=== PATIENT | female | born 1930 | race Asian ===

== ENCOUNTER 2016-09-15 16:37 | Inpatient (IN) | payer MEDICARE, MEDICAID ==
[~2016-09-15] VITALS: Ht 147.3 cm; Wt 37.7 kg
[~2016-09-15 16:37] MED LIST: ACET-2247 PO; ADV250 IH; ALEN35TA32 PO; ASPI-1093 PO; ATOR10TA84 PO; AUD NEB; CALC-776 PO; CARV12 PO; DONE10TA PO; DRON2.5C PO; DULO30CA2 PO; LACT-90 PO; LEVO75 PO; MEMA10TA11 PO; PREG50 PO; SPIR25 PO; VALS160T2 PO
[2016-09-15 18:17] LABS: BASOPHILS % (AUTO) 0.2 % (0.0-2.0); EOSINOPHILS % (AUTO) 0 % (1.0-6.0); HEMATOCRIT 28.3 % (36-46); HEMOGLOBIN 9.4 g/dL (12.0-16.0); LYMPHOCYTES # (AUTO) 2.2 K/uL (1.0-4.8); LYMPHOCYTES % (AUTO) 18.6 % (22.0-44.0); MEAN CORPUSCULAR HEMOGLOBIN 32.8 pg (26.0-34.0); MEAN CORPUSCULAR HGB CONC 33.3 G/dL (31.0-37.0); MEAN CORPUSCULAR VOLUME 98 fL (80-100); MONOCYTES # (AUTO) 0.8 K/uL (0.1-1.0); MONOCYTES % (AUTO) 6.9 % (2.0-9.0); NEUTROPHILS # (AUTO) 8.9 K/uL (1.8-7.7); NEUTROPHILS % (AUTO) 74.3 % (40.0-70.0); PLATELET COUNT (AUTO) 124 K/uL (150-450); RED BLOOD CELL COUNT(AUTO) 2.87 MIL/uL (4.00-5.20); RED CELL DISTRIBUTION WIDTH 15.8 % (11.5-14.5); WHITE BLOOD COUNT (AUTO) 11.9 K/uL (4.5-11.0)
[2016-09-15 18:33] LABS: CALCIUM, TOTAL 7.8 mg/dL (8.8-10.5); CREATININE 2.09 mg/dL (0.60-1.30)
[2016-09-15 18:37] LABS: ALBUMIN 2.2 g/dL (3.4-5.0); BILIRUBIN,TOTAL 0.4 mg/dL (0.1-1.0); TOTAL PROTEIN, SERUM 6.9 g/dL (6.4-8.2)
[2016-09-15 18:44] LABS: LACTIC ACID 0.5 mmol/L (0.4-2.0)
[2016-09-15] MEDS ORDERED: ALBUMIN HUMAN 25%-50GM/200ML 200 ML IV ONE (19:00)
[2016-09-15] MEDS ORDERED: ACETAMINOPHEN 325 MG TABLET PO PRN (19:30)
[2016-09-15] MEDS ORDERED: 0.9% SODIUM CHLORIDE 10 ML SYRINGE IVP PRN ×3 (19:30→22:00)
[2016-09-15] MEDS ORDERED: ONDANSETRON HCL 4 MG/2 ML VIAL IVP PRN ×2 (19:30→22:00)
[2016-09-15] MEDS ORDERED: LEVOFLOXACIN 500 MG/D5% WATER 100 ML IV ONE (21:00)
[2016-09-15] MEDS ORDERED: MetroNIDAZOLE 500 MG/NACL 100 ML IV ONE ×2 (21:00→22:00)
[2016-09-15] MEDS ORDERED: ALBUTEROL SULFATE 2.5 MG/0.5 ML NEB SOLUTION NEB PRN (22:00)
[2016-09-15] MEDS ORDERED: *CLINICAL-LEVOFLOXACIN IVPB DOSING CLINICAL ONE ×2 (22:00)
[2016-09-15 22:20] LABS: PROCALCITONIN (PCT) 0.35 ng/mL (<0.50)
[2016-09-15 22:24] LABS: APPEARANCE,URINE CLOUDY (CLEAR); GLUCOSE, URINE (UA) NEGATIVE (NEGATIVE); KETONES,URINE NEGATIVE (NEGATIVE); LEUKOCYTE ESTERASE ,URINE TRACE (NEGATIVE); OCCULT BLOOD,URINE TRACE (NEGATIVE); PH,URINE 5.5 (5.0-8.0); PROTEIN,URINE POS 1+ (NEGATIVE)
[2016-09-15 22:32] LABS: ADD UA MICROSCOPIC YES
[2016-09-15 22:34] LABS: RBC,URINE None Seen /HPF (0-2); SQUAMOUS EPITHELIAL CELL,UR Rare /LPF (None Seen); WBC,URINE 0-2 /HPF (0-5)
[2016-09-15] MEDS ORDERED: SODIUM CHLORIDE 0.9% 1,000 ML IV ONE (23:53)
[2016-09-16] MEDS ORDERED: [UNRECOGNIZED DRUG - REMARK] PO SCH (06:30)
[2016-09-16] MEDS: PANTOPRAZOLE SODIUM 40 MG DR TABLET PO SCH (08:04)
[2016-09-16] MEDS ORDERED: VANCOMYCIN HCL 750 MG in DEXTROSE 5%-WATER 150 ML IV ONE (09:00)
[2016-09-16] MEDS: IPRATROPIUM BROMIDE 0.5 MG/2.5 ML NEB SOLUTION NEB PRN ×2 (09:05→13:21)
[2016-09-16] MEDS: ALBUTEROL SULFATE 2.5 MG/0.5 ML NEB SOLUTION NEB SCH (09:05)
[2016-09-16] MEDS: CALCIUM OYSTER SHELL 250 MG-VIT D3 125 UNITS TABLET PO SCH (09:24)
[2016-09-16] MEDS: DRONABINOL 2.5 MG CAPSULE PO SCH ×2 (09:24→21:55)
[2016-09-16] MEDS: LEVOTHYROXINE SODIUM 75 MCG TABLET PO SCH (09:24)
[2016-09-16] MEDS: ATORVASTATIN CALCIUM 10 MG TABLET PO SCH (09:24)
[2016-09-16 09:26] LABS: BASOPHILS % (AUTO) 0.2 % (0.0-2.0); EOSINOPHILS % (AUTO) 0.3 % (1.0-6.0); HEMOGLOBIN 10.1 g/dL (12.0-16.0); LYMPHOCYTES % (AUTO) 8.5 % (22.0-44.0); MEAN CORPUSCULAR HEMOGLOBIN 32.5 pg (26.0-34.0); MEAN CORPUSCULAR HGB CONC 32.6 G/dL (31.0-37.0); MEAN CORPUSCULAR VOLUME 100 fL (80-100); MONOCYTES # (AUTO) 0.4 K/uL (0.1-1.0); MONOCYTES % (AUTO) 3.7 % (2.0-9.0); NEUTROPHILS # (AUTO) 10.3 K/uL (1.8-7.7); NEUTROPHILS % (AUTO) 87.3 % (40.0-70.0); PLATELET COUNT (AUTO) 113 K/uL (150-450); RED BLOOD CELL COUNT(AUTO) 3.11 MIL/uL (4.00-5.20); RED CELL DISTRIBUTION WIDTH 16.1 % (11.5-14.5); WHITE BLOOD COUNT (AUTO) 11.8 K/uL (4.5-11.0)
[2016-09-16 09:30] LABS: INR 1.1 (0.9-1.1); PROTHROMBIN TIME 11.6 SEC (9.4-11.6)
[2016-09-16 09:33] LABS: HEMOGLOBIN A1C 5.4 % (4.5-6.2)
[2016-09-16] MEDS: FLUTICASONE/VILANTEROL 200-25 MCG/INH INHALER [14] IH SCH (09:39)
[2016-09-16 09:46] LABS: CHOL/HDL RATIO 5.9 (3.9-5.7); THYROID STIMULATING HORMONE 4.08 uIU/mL (0.36-3.74)
[2016-09-16] MEDS ORDERED: VANCOMYCIN HCL 500 MG in DEXTROSE 5%-WATER 100 ML IV PRN (11:00)
[2016-09-16] MEDS ORDERED: DEXTROSE 5%-0.45% SODIUM CHL 1,000 ML IV SCH (11:15)
[2016-09-16 11:29] LABS: BILIRUBIN,TOTAL 0.4 mg/dL (0.1-1.0); CALCIUM, TOTAL 7.8 mg/dL (8.8-10.5); CREATININE 1.36 mg/dL (0.60-1.30); POTASSIUM 4.6 mmol/L (3.5-5.1); TOTAL PROTEIN, SERUM 6.9 g/dL (6.4-8.2)
[2016-09-16] MEDS ORDERED: DEXTROSE 5%-0.9% SODIUM CHL 1,000 ML IV SCH (12:00)
[2016-09-16] MEDS: MetroNIDAZOLE 250 MG/NACL 50 ML IV SCH ×2 (12:28→20:40)
[2016-09-16] MEDS: VANCOMYCIN HCL 250 MG/5 ML SOLUTION ORAL.SYG PO SCH ×3 (14:22→21:55)
[2016-09-16 15:53] LABS: TROPONIN I 0.03 ng/mL (0.00-0.05)
[2016-09-16 16:43] VITALS: BP 95/49
[2016-09-16] MEDS: SODIUM BICARBONATE 50 MEQ in SODIUM CHLORIDE 0.45% 1,000 ML IV SCH (18:05)
[2016-09-16 19:31] VITALS: BP 100/69
[2016-09-16] MEDS ORDERED: DEXTROSE 5%-0.9% SODIUM CHL 1,000 ML IV ONE (20:00)
[2016-09-16] MEDS ORDERED: DEXTROSE 5%-0.45% SODIUM CHL 1,000 ML IV ONE (21:00)
[2016-09-17 00:16] VITALS: BP 121/59
[2016-09-17] MEDS: ALBUTEROL SULFATE 2.5 MG/0.5 ML NEB SOLUTION NEB SCH ×3 (00:56→20:08)
[2016-09-17] MEDS: HYDROCODONE/ACETAMINOPHEN 5-325 MG TABLET PO PRN (02:06)
[2016-09-17 04:32] VITALS: BP 124/62
[2016-09-17] MEDS: MetroNIDAZOLE 250 MG/NACL 50 ML IV SCH ×3 (04:41→20:41)
[2016-09-17 06:22] LABS: ORIG DRAW (USER) MSIMS
[2016-09-17] MEDS: LEVOTHYROXINE SODIUM 75 MCG TABLET PO SCH (06:32)
[2016-09-17] MEDS: PANTOPRAZOLE SODIUM 40 MG DR TABLET PO SCH (06:32)
[2016-09-17 06:35] LABS: ALBUMIN 2.4 g/dL (3.4-5.0); BILIRUBIN,TOTAL 0.3 mg/dL (0.1-1.0); CALCIUM, TOTAL 7.7 mg/dL (8.8-10.5); CREATININE 1.05 mg/dL (0.60-1.30); MAGNESIUM 1.6 mg/dL (1.80-2.40); PHOSPHORUS 2.6 mg/dL (2.5-4.9); POTASSIUM 4.2 mmol/L (3.5-5.1); THYROID STIMULATING HORMONE 4.16 uIU/mL (0.36-3.74); TOTAL PROTEIN, SERUM 6.1 g/dL (6.4-8.2)
[2016-09-17 07:17] LABS: BASOPHILS % (AUTO) 0.2 % (0.0-2.0); EOSINOPHILS % (AUTO) 0.6 % (1.0-6.0); HEMATOCRIT 28.9 % (36-46); HEMOGLOBIN 9.5 g/dL (12.0-16.0); LYMPHOCYTES # (AUTO) 1.2 K/uL (1.0-4.8); MEAN CORPUSCULAR HEMOGLOBIN 32.8 pg (26.0-34.0); MEAN CORPUSCULAR VOLUME 99 fL (80-100); MONOCYTES # (AUTO) 0.4 K/uL (0.1-1.0); MONOCYTES % (AUTO) 6.6 % (2.0-9.0); NEUTROPHILS # (AUTO) 5.2 K/uL (1.8-7.7); NEUTROPHILS % (AUTO) 75.6 % (40.0-70.0); PLATELET COUNT (AUTO) 92 K/uL (150-450); RED BLOOD CELL COUNT(AUTO) 2.91 MIL/uL (4.00-5.20); WHITE BLOOD COUNT (AUTO) 6.8 K/uL (4.5-11.0)
[2016-09-17 07:55] VITALS: BP 117/50
[2016-09-17] MEDS: IPRATROPIUM BROMIDE 0.5 MG/2.5 ML NEB SOLUTION NEB PRN (08:28)
[2016-09-17] MEDS ORDERED: MAGNESIUM SULFATE 2 GM in DEXTROSE 5%-WATER 50 ML IV ONE (08:30)
[2016-09-17] MEDS: FLUTICASONE/VILANTEROL 200-25 MCG/INH INHALER [14] IH SCH (09:20)
[2016-09-17] MEDS: CALCIUM OYSTER SHELL 250 MG-VIT D3 125 UNITS TABLET PO SCH (09:21)
[2016-09-17] MEDS: VANCOMYCIN HCL 250 MG/5 ML SOLUTION ORAL.SYG PO SCH ×3 (09:21→21:36)
[2016-09-17] MEDS: DRONABINOL 2.5 MG CAPSULE PO SCH ×2 (09:21→20:40)
[2016-09-17] MEDS: ATORVASTATIN CALCIUM 10 MG TABLET PO SCH (09:21)
[2016-09-17 12:26] VITALS: BP 127/57
[2016-09-17] MEDS ORDERED: VANCOMYCIN HCL 500 MG in DEXTROSE 5%-WATER 100 ML IV ONE (13:00)
[2016-09-17] MEDS ORDERED: 0.9% SODIUM CHLORIDE 5 ML NEB SOLUTION NEB ONE ×2 (14:19→19:59)
[2016-09-17 15:13] VITALS: BP 128/70
[2016-09-17] MEDS: LEVOFLOXACIN 250 MG/D5% WATER 50 ML IV SCH (19:22)
[2016-09-17 20:00] VITALS: BP 145/75
[2016-09-17] MEDS: ACETAMINOPHEN 325 MG TABLET PO PRN (20:41)
[2016-09-18 00:22] VITALS: BP 96/51
[2016-09-18] MEDS: MetroNIDAZOLE 250 MG/NACL 50 ML IV SCH ×3 (04:00→20:07)
[2016-09-18 05:19] VITALS: BP 99/57
[2016-09-18] MEDS: SODIUM BICARBONATE 50 MEQ in SODIUM CHLORIDE 0.45% 1,000 ML IV SCH (05:24)
[2016-09-18] MEDS: PANTOPRAZOLE SODIUM 40 MG DR TABLET PO SCH (05:33)
[2016-09-18] MEDS: LEVOTHYROXINE SODIUM 88 MCG TABLET PO SCH (05:33)
[2016-09-18 07:33] LABS: ALANINE AMINOTRANSFERASE 18 U/L (12-78); ALBUMIN 2.3 g/dL (3.4-5.0); ANION GAP 9 mmol/L (8-16); ASPARTATE AMINOTRANSFERASE 34 U/L (15-37); BILIRUBIN,TOTAL 0.5 mg/dL (0.1-1.0); CALCIUM, TOTAL 7.8 mg/dL (8.8-10.5); CARBON DIOXIDE 21 mmol/L (22-29); CHLORIDE 107 mmol/L (98-107); CREATININE 0.81 mg/dL (0.60-1.30); GLOMERULAR FILTR. RATE CALC > 60 mL/min (>60); PHOSPHORUS 2.4 mg/dL (2.5-4.9); POTASSIUM 3.9 mmol/L (3.5-5.1); SODIUM SERUM 137 mmol/L (136-145); TOTAL PROTEIN, SERUM 6.3 g/dL (6.4-8.2); UREA NITROGEN, BLOOD 16 mg/dL (7-18)
[2016-09-18 07:35] VITALS: BP 108/51
[2016-09-18 07:50] LABS: IRON, SERUM 23 mcg/dL (50-175); TOTAL IRON BINDING CAPACITY 142 mcg/dL (250-450)
[2016-09-18] MEDS ORDERED: VANCOMYCIN HCL 500 MG in DEXTROSE 5%-WATER 100 ML IV SCH (08:00)
[2016-09-18] MEDS: DRONABINOL 2.5 MG CAPSULE PO SCH ×2 (09:06→20:07)
[2016-09-18] MEDS: CALCIUM OYSTER SHELL 250 MG-VIT D3 125 UNITS TABLET PO SCH (09:06)
[2016-09-18] MEDS: ATORVASTATIN CALCIUM 10 MG TABLET PO SCH (09:06)
[2016-09-18] MEDS: FLUTICASONE/VILANTEROL 200-25 MCG/INH INHALER [14] IH SCH (09:06)
[2016-09-18] MEDS: POTASSIUM PHOS/SODIUM PHOS MIXTURE 1 POWDER PACKET PO SCH ×2 (09:06→20:07)
[2016-09-18] MEDS ORDERED: 0.9% SODIUM CHLORIDE 5 ML NEB SOLUTION NEB ONE (09:12)
[2016-09-18] MEDS: ALBUTEROL SULFATE 2.5 MG/0.5 ML NEB SOLUTION NEB SCH (09:16)
[2016-09-18] MEDS: DEXTROSE 5%-0.45% SODIUM CHL 1,000 ML IV SCH (10:12)
[2016-09-18 11:03] VITALS: BP 88/42
[2016-09-18] MEDS: SOD FERRIC GLUC COMPLX/SUCROSE 125 MG in SODIUM CHLORIDE 0.9% 100 ML IV SCH (11:25)
[2016-09-18] MEDS: VANCOMYCIN HCL 250 MG/5 ML SOLUTION ORAL.SYG PO SCH ×3 (11:33→20:08)
[2016-09-18] MEDS: EPOETIN ALFA 10,000 UNITS/ML VIAL SQ SCH (11:38)
[2016-09-18 15:37] VITALS: BP 123/72
[2016-09-18] MEDS: LEVOFLOXACIN 250 MG/D5% WATER 50 ML IV SCH (16:59)
[2016-09-18 20:22] VITALS: BP 108/55
[2016-09-18] MEDS: VANCOMYCIN HCL 500 MG in DEXTROSE 5%-WATER 100 ML IV SCH (21:31)
[2016-09-19 00:18] VITALS: BP 135/69
[2016-09-19] MEDS: MetroNIDAZOLE 250 MG/NACL 50 ML IV SCH ×2 (03:10→17:16)
[2016-09-19 05:24] VITALS: BP 127/60
[2016-09-19] MEDS: LEVOTHYROXINE SODIUM 88 MCG TABLET PO SCH (05:40)
[2016-09-19] MEDS: PANTOPRAZOLE SODIUM 40 MG DR TABLET PO SCH (05:40)
[2016-09-19 07:12] LABS: ALANINE AMINOTRANSFERASE 15 U/L (12-78); ALBUMIN 2.2 g/dL (3.4-5.0); ANION GAP 10 mmol/L (8-16); ASPARTATE AMINOTRANSFERASE 27 U/L (15-37); BILIRUBIN,TOTAL 0.5 mg/dL (0.1-1.0); CALCIUM, TOTAL 7.4 mg/dL (8.8-10.5); CARBON DIOXIDE 19 mmol/L (22-29); CHLORIDE 104 mmol/L (98-107); CREATININE 0.64 mg/dL (0.60-1.30); GLOMERULAR FILTR. RATE CALC > 60 mL/min (>60); PHOSPHORUS 2.4 mg/dL (2.5-4.9); POTASSIUM 3.3 mmol/L (3.5-5.1); SODIUM SERUM 133 mmol/L (136-145); TOTAL PROTEIN, SERUM 6.2 g/dL (6.4-8.2); UREA NITROGEN, BLOOD 7 mg/dL (7-18)
[2016-09-19 07:26] VITALS: BP 109/58
[2016-09-19] MEDS ORDERED: 0.9% SODIUM CHLORIDE 5 ML NEB SOLUTION NEB ONE (07:43)
[2016-09-19] MEDS ORDERED: POTASSIUM PHOS,M-BASIC-D-BASIC 20 MEQ in DEXTROSE 5%-WATER 100 ML IV ONE (08:00)
[2016-09-19] MEDS ORDERED: MAGNESIUM SULFATE 3 GM in DEXTROSE 5%-WATER 100 ML IV ONE (08:00)
[2016-09-19] MEDS: POTASSIUM PHOS/SODIUM PHOS MIXTURE 1 POWDER PACKET PO SCH ×2 (08:29→20:00)
[2016-09-19] MEDS: FLUTICASONE/VILANTEROL 200-25 MCG/INH INHALER [14] IH SCH (08:29)
[2016-09-19] MEDS: VANCOMYCIN HCL 500 MG in DEXTROSE 5%-WATER 100 ML IV SCH ×2 (08:29→19:57)
[2016-09-19] MEDS: DRONABINOL 2.5 MG CAPSULE PO SCH ×2 (08:30→20:00)
[2016-09-19] MEDS: DEXTROSE 5%-0.45% SODIUM CHL 1,000 ML IV SCH (08:30)
[2016-09-19] MEDS: CALCIUM OYSTER SHELL 250 MG-VIT D3 125 UNITS TABLET PO SCH (08:30)
[2016-09-19] MEDS: ATORVASTATIN CALCIUM 10 MG TABLET PO SCH (08:30)
[2016-09-19] MEDS: SOD FERRIC GLUC COMPLX/SUCROSE 125 MG in SODIUM CHLORIDE 0.9% 100 ML IV SCH (09:00)
[2016-09-19] MEDS ORDERED: POTASSIUM PHOS M BASIC D BASIC IV SCH ×2 (09:00→09:08)
[2016-09-19] MEDS: ALBUTEROL SULFATE 2.5 MG/0.5 ML NEB SOLUTION NEB SCH ×2 (09:00→19:37)
[2016-09-19] MEDS ORDERED: DEXTROSE IV SCH ×2 (09:00→09:08)
[2016-09-19] MEDS ORDERED: SODIUM CHL IV SCH ×2 (09:00→09:08)
[2016-09-19] MEDS: DEXTROSE IV SCH (09:15)
[2016-09-19] MEDS: SODIUM CHL IV SCH (09:15)
[2016-09-19] MEDS: POTASSIUM PHOS M BASIC D BASIC IV SCH (09:15)
[2016-09-19] MEDS: VANCOMYCIN HCL 250 MG/5 ML SOLUTION ORAL.SYG PO SCH ×3 (10:40→20:02)
[2016-09-19 15:57] VITALS: BP 127/66
[2016-09-19] MEDS: LEVOFLOXACIN 250 MG/D5% WATER 50 ML IV SCH (18:21)
[2016-09-19 19:57] VITALS: BP 137/63
[2016-09-20] VITALS (7 sets, daily range): BP systolic 98–152; BP diastolic 55–78
[2016-09-20] MEDS: MetroNIDAZOLE 250 MG/NACL 50 ML IV SCH ×3 (00:59→16:48)
[2016-09-20] MEDS: PANTOPRAZOLE SODIUM 40 MG DR TABLET PO SCH (06:12)
[2016-09-20] MEDS: LEVOTHYROXINE SODIUM 88 MCG TABLET PO SCH (06:13)
[2016-09-20] MEDS: ALBUTEROL SULFATE 2.5 MG/0.5 ML NEB SOLUTION NEB SCH ×2 (09:00→20:51)
[2016-09-20 09:06] LABS: ANION GAP 9 mmol/L (8-16); CARBON DIOXIDE 20 mmol/L (22-29); CHLORIDE 109 mmol/L (98-107); CREATININE 0.59 mg/dL (0.60-1.30); POTASSIUM 3.7 mmol/L (3.5-5.1); SODIUM SERUM 138 mmol/L (136-145)
[2016-09-20 09:07] LABS: ALANINE AMINOTRANSFERASE 14 U/L (12-78); ALBUMIN 2.2 g/dL (3.4-5.0); ASPARTATE AMINOTRANSFERASE 26 U/L (15-37); BILIRUBIN,TOTAL 0.5 mg/dL (0.1-1.0); CALCIUM, TOTAL 7.5 mg/dL (8.8-10.5); GLOMERULAR FILTR. RATE CALC > 60 mL/min (>60); PHOSPHORUS 3.2 mg/dL (2.5-4.9); TOTAL PROTEIN, SERUM 6.7 g/dL (6.4-8.2)
[2016-09-20 09:17] LABS: UREA NITROGEN, BLOOD 5 mg/dL (7-18)
[2016-09-20] MEDS: EPOETIN ALFA 10,000 UNITS/ML VIAL SQ SCH (09:52)
[2016-09-20] MEDS: VANCOMYCIN HCL 250 MG/5 ML SOLUTION ORAL.SYG PO SCH ×3 (09:52→21:27)
[2016-09-20] MEDS: ATORVASTATIN CALCIUM 10 MG TABLET PO SCH (09:52)
[2016-09-20] MEDS: DRONABINOL 2.5 MG CAPSULE PO SCH ×2 (09:52→21:27)
[2016-09-20] MEDS: FLUTICASONE/VILANTEROL 200-25 MCG/INH INHALER [14] IH SCH (09:52)
[2016-09-20] MEDS: VANCOMYCIN HCL 500 MG in DEXTROSE 5%-WATER 100 ML IV SCH ×2 (09:52→21:26)
[2016-09-20] MEDS: SOD FERRIC GLUC COMPLX/SUCROSE 125 MG in SODIUM CHLORIDE 0.9% 100 ML IV SCH (09:53)
[2016-09-20] MEDS: CALCIUM OYSTER SHELL 250 MG-VIT D3 125 UNITS TABLET PO SCH (09:55)
[2016-09-20] MEDS ORDERED: MAGNESIUM SULFATE 1 GM in DEXTROSE 5%-WATER 50 ML IV ONE (10:15)
[2016-09-20] MEDS: HYDROCODONE/ACETAMINOPHEN 5-325 MG TABLET PO PRN (15:25)
[2016-09-20] MEDS: LEVOFLOXACIN 250 MG/D5% WATER 50 ML IV SCH (17:53)
[2016-09-20] MEDS ORDERED: 0.9% SODIUM CHLORIDE 5 ML NEB SOLUTION NEB ONE (20:45)
[2016-09-21] MEDS: MetroNIDAZOLE 250 MG/NACL 50 ML IV SCH ×4 (00:47→23:56)
[2016-09-21 04:42] VITALS: BP 142/83
[2016-09-21] MEDS: POTASSIUM PHOS M BASIC D BASIC IV SCH (05:42)
[2016-09-21] MEDS: DEXTROSE IV SCH (05:42)
[2016-09-21] MEDS: SODIUM CHL IV SCH (05:42)
[2016-09-21] MEDS: LEVOTHYROXINE SODIUM 88 MCG TABLET PO SCH (05:42)
[2016-09-21] MEDS: PANTOPRAZOLE SODIUM 40 MG DR TABLET PO SCH (06:30)
[2016-09-21 06:45] LABS: ALANINE AMINOTRANSFERASE 13 U/L (12-78); ALBUMIN 2.2 g/dL (3.4-5.0); ANION GAP 9 mmol/L (8-16); ASPARTATE AMINOTRANSFERASE 25 U/L (15-37); BILIRUBIN,TOTAL 0.5 mg/dL (0.1-1.0); CARBON DIOXIDE 22 mmol/L (22-29); CHLORIDE 108 mmol/L (98-107); CREATININE 0.67 mg/dL (0.60-1.30); GLOMERULAR FILTR. RATE CALC > 60 mL/min (>60); PHOSPHORUS 3.3 mg/dL (2.5-4.9); POTASSIUM 3.7 mmol/L (3.5-5.1); SODIUM SERUM 139 mmol/L (136-145); TOTAL PROTEIN, SERUM 6.9 g/dL (6.4-8.2); UREA NITROGEN, BLOOD 6 mg/dL (7-18)
[2016-09-21 07:51] VITALS: BP 133/59
[2016-09-21] MEDS: VANCOMYCIN HCL 500 MG in DEXTROSE 5%-WATER 100 ML IV SCH ×2 (07:57→20:38)
[2016-09-21] MEDS: VANCOMYCIN HCL 250 MG/5 ML SOLUTION ORAL.SYG PO SCH ×3 (09:01→20:38)
[2016-09-21] MEDS: DRONABINOL 2.5 MG CAPSULE PO SCH ×2 (09:02→20:38)
[2016-09-21] MEDS: CALCIUM OYSTER SHELL 250 MG-VIT D3 125 UNITS TABLET PO SCH (09:02)
[2016-09-21] MEDS: FLUTICASONE/VILANTEROL 200-25 MCG/INH INHALER [14] IH SCH (09:02)
[2016-09-21] MEDS: ATORVASTATIN CALCIUM 10 MG TABLET PO SCH (09:02)
[2016-09-21] MEDS: SOD FERRIC GLUC COMPLX/SUCROSE 125 MG in SODIUM CHLORIDE 0.9% 100 ML IV SCH (09:37)
[2016-09-21] MEDS ORDERED: 0.9% SODIUM CHLORIDE 5 ML NEB SOLUTION NEB ONE ×2 (09:46→18:46)
[2016-09-21] MEDS: ALBUTEROL SULFATE 2.5 MG/0.5 ML NEB SOLUTION NEB SCH ×2 (09:46→20:26)
[2016-09-21 12:26] VITALS: BP 119/66
[2016-09-21] MEDS: MULTIVITAMINS WITH MINERALS, THERAPEUTIC TABLET PO SCH (14:01)
[2016-09-21 16:41] VITALS: BP 129/62
[2016-09-21] MEDS: LEVOFLOXACIN 250 MG/D5% WATER 50 ML IV SCH (18:24)
[2016-09-21 20:25] VITALS: BP 150/74
[2016-09-21 23:11] VITALS: BP 135/73
[2016-09-22 05:42] VITALS: BP 129/67
[2016-09-22] MEDS: PANTOPRAZOLE SODIUM 40 MG DR TABLET PO SCH (05:44)
[2016-09-22] MEDS: LEVOTHYROXINE SODIUM 88 MCG TABLET PO SCH (05:44)
[2016-09-22 07:29] LABS: ALANINE AMINOTRANSFERASE 10 U/L (12-78); ALBUMIN 2.1 g/dL (3.4-5.0); ANION GAP 5 mmol/L (8-16); ASPARTATE AMINOTRANSFERASE 20 U/L (15-37); BILIRUBIN,TOTAL 0.4 mg/dL (0.1-1.0); CALCIUM, TOTAL 7.8 mg/dL (8.8-10.5); CARBON DIOXIDE 22 mmol/L (22-29); CHLORIDE 107 mmol/L (98-107); GLOMERULAR FILTR. RATE CALC > 60 mL/min (>60); PHOSPHORUS 3.5 mg/dL (2.5-4.9); POTASSIUM 3.4 mmol/L (3.5-5.1); SODIUM SERUM 134 mmol/L (136-145); TOTAL PROTEIN, SERUM 6.6 g/dL (6.4-8.2); UREA NITROGEN, BLOOD 6 mg/dL (7-18)
[2016-09-22] MEDS: MetroNIDAZOLE 250 MG/NACL 50 ML IV SCH ×2 (07:40→16:03)
[2016-09-22 07:53] VITALS: BP 147/79
[2016-09-22] MEDS ORDERED: POTASSIUM CHLORIDE 20 MEQ ER TABLET PO ONE (08:15)
[2016-09-22] MEDS ORDERED: MAGNESIUM SULFATE 2 GM in DEXTROSE 5%-WATER 50 ML IV ONE (08:15)
[2016-09-22] MEDS: SODIUM CHL IV SCH ×2 (09:15→16:09)
[2016-09-22] MEDS: DEXTROSE IV SCH ×2 (09:15→16:09)
[2016-09-22] MEDS: POTASSIUM PHOS M BASIC D BASIC IV SCH ×2 (09:15→16:09)
[2016-09-22] MEDS: VANCOMYCIN HCL 500 MG in DEXTROSE 5%-WATER 100 ML IV SCH ×2 (09:30→21:15)
[2016-09-22] MEDS: ATORVASTATIN CALCIUM 10 MG TABLET PO SCH (09:38)
[2016-09-22] MEDS: MULTIVITAMINS WITH MINERALS, THERAPEUTIC TABLET PO SCH (09:38)
[2016-09-22] MEDS: CALCIUM OYSTER SHELL 250 MG-VIT D3 125 UNITS TABLET PO SCH (09:38)
[2016-09-22] MEDS: FLUTICASONE/VILANTEROL 200-25 MCG/INH INHALER [14] IH SCH (09:38)
[2016-09-22] MEDS: DRONABINOL 2.5 MG CAPSULE PO SCH ×2 (09:39→21:15)
[2016-09-22] MEDS: VANCOMYCIN HCL 250 MG/5 ML SOLUTION ORAL.SYG PO SCH ×3 (09:40→21:15)
[2016-09-22] MEDS ORDERED: 0.9% SODIUM CHLORIDE 5 ML NEB SOLUTION NEB ONE (09:44)
[2016-09-22] MEDS: ALBUTEROL SULFATE 2.5 MG/0.5 ML NEB SOLUTION NEB SCH ×2 (10:03→20:33)
[2016-09-22] MEDS: SOD FERRIC GLUC COMPLX/SUCROSE 125 MG in SODIUM CHLORIDE 0.9% 100 ML IV SCH (10:39)
[2016-09-22 11:49] VITALS: BP 135/72
[2016-09-22 15:59] VITALS: BP 129/76
[2016-09-22] MEDS: LEVOFLOXACIN 250 MG/D5% WATER 50 ML IV SCH (18:59)
[2016-09-22 19:29] VITALS: BP 128/68
[2016-09-22 23:52] VITALS: BP 133/69
[2016-09-23] MEDS: MetroNIDAZOLE 250 MG/NACL 50 ML IV SCH ×2 (01:16→16:01)
[2016-09-23 05:01] VITALS: BP 139/71
[2016-09-23] MEDS: PANTOPRAZOLE SODIUM 40 MG DR TABLET PO SCH (05:39)
[2016-09-23] MEDS: LEVOTHYROXINE SODIUM 88 MCG TABLET PO SCH (05:39)
[2016-09-23 07:08] LABS: ANION GAP 6 mmol/L (8-16); CALCIUM, TOTAL 8.1 mg/dL (8.8-10.5); CARBON DIOXIDE 23 mmol/L (22-29); CHLORIDE 109 mmol/L (98-107); CREATININE 0.64 mg/dL (0.60-1.30); GLOMERULAR FILTR. RATE CALC > 60 mL/min (>60); PHOSPHORUS 3.1 mg/dL (2.5-4.9); POTASSIUM 3.7 mmol/L (3.5-5.1); SODIUM SERUM 138 mmol/L (136-145); UREA NITROGEN, BLOOD 5 mg/dL (7-18)
[2016-09-23 07:17] VITALS: BP 137/67
[2016-09-23] MEDS: VANCOMYCIN HCL 500 MG in DEXTROSE 5%-WATER 100 ML IV SCH (08:23)
[2016-09-23] MEDS: VANCOMYCIN HCL 250 MG/5 ML SOLUTION ORAL.SYG PO SCH ×4 (08:57→22:06)
[2016-09-23] MEDS: EPOETIN ALFA 10,000 UNITS/ML VIAL SQ SCH (08:59)
[2016-09-23] MEDS: FLUTICASONE/VILANTEROL 200-25 MCG/INH INHALER [14] IH SCH (08:59)
[2016-09-23] MEDS: CALCIUM OYSTER SHELL 250 MG-VIT D3 125 UNITS TABLET PO SCH (09:00)
[2016-09-23] MEDS: MULTIVITAMINS WITH MINERALS, THERAPEUTIC TABLET PO SCH (09:00)
[2016-09-23] MEDS: ATORVASTATIN CALCIUM 10 MG TABLET PO SCH (09:00)
[2016-09-23] MEDS: SOD FERRIC GLUC COMPLX/SUCROSE 125 MG in SODIUM CHLORIDE 0.9% 100 ML IV SCH (09:00)
[2016-09-23] MEDS: DRONABINOL 2.5 MG CAPSULE PO SCH ×2 (09:00→22:05)
[2016-09-23] MEDS: SODIUM CHL IV SCH (09:15)
[2016-09-23] MEDS: DEXTROSE IV SCH (09:15)
[2016-09-23] MEDS: POTASSIUM PHOS M BASIC D BASIC IV SCH (09:15)
[2016-09-23] MEDS ORDERED: SODIUM CHLORIDE 3% 15 ML NEB SOLUTION NEB ONE (09:26)
[2016-09-23] MEDS ORDERED: 0.9% SODIUM CHLORIDE 5 ML NEB SOLUTION NEB ONE (09:26)
[2016-09-23] MEDS: ALBUTEROL SULFATE 2.5 MG/0.5 ML NEB SOLUTION NEB SCH ×2 (10:34→20:18)
[2016-09-23 11:24] VITALS: BP 121/64
[2016-09-23 15:16] VITALS: BP 133/58
[2016-09-23 19:21] VITALS: BP 128/62
[2016-09-23] MEDS: IPRATROPIUM BROMIDE 0.5 MG/2.5 ML NEB SOLUTION NEB PRN (20:18)
[2016-09-23] MEDS: HYDROCODONE/ACETAMINOPHEN 5-325 MG TABLET PO PRN (22:33)
[2016-09-23 23:50] VITALS: BP 118/60
[2016-09-24] MEDS: MetroNIDAZOLE 250 MG/NACL 50 ML IV SCH ×2 (01:09→08:27)
[2016-09-24 03:49] VITALS: BP 120/64
[2016-09-24] MEDS: LEVOTHYROXINE SODIUM 88 MCG TABLET PO SCH (06:00)
[2016-09-24] MEDS: PANTOPRAZOLE SODIUM 40 MG DR TABLET PO SCH (06:03)
[2016-09-24 06:10] LABS: CALCIUM, TOTAL 7.7 mg/dL (8.8-10.5); CREATININE 0.92 mg/dL (0.60-1.30); POTASSIUM 3.7 mmol/L (3.5-5.1)
[2016-09-24 07:25] VITALS: BP 152/85
[2016-09-24] MEDS: IPRATROPIUM BROMIDE 0.5 MG/2.5 ML NEB SOLUTION NEB PRN (08:14)
[2016-09-24] MEDS: ALBUTEROL SULFATE 2.5 MG/0.5 ML NEB SOLUTION NEB SCH ×2 (08:14→19:14)
[2016-09-24] MEDS: VANCOMYCIN HCL 250 MG/5 ML SOLUTION ORAL.SYG PO SCH ×2 (09:00→09:36)
[2016-09-24] MEDS: DRONABINOL 2.5 MG CAPSULE PO SCH ×2 (09:35→21:06)
[2016-09-24] MEDS: ATORVASTATIN CALCIUM 10 MG TABLET PO SCH (09:35)
[2016-09-24] MEDS: MULTIVITAMINS WITH MINERALS, THERAPEUTIC TABLET PO SCH (09:36)
[2016-09-24] MEDS: SOD FERRIC GLUC COMPLX/SUCROSE 125 MG in SODIUM CHLORIDE 0.9% 100 ML IV SCH (09:36)
[2016-09-24] MEDS: SODIUM CHL IV SCH (09:36)
[2016-09-24] MEDS: POTASSIUM PHOS M BASIC D BASIC IV SCH (09:36)
[2016-09-24] MEDS: CALCIUM OYSTER SHELL 250 MG-VIT D3 125 UNITS TABLET PO SCH (09:36)
[2016-09-24] MEDS: DEXTROSE IV SCH (09:36)
[2016-09-24] MEDS: FLUTICASONE/VILANTEROL 200-25 MCG/INH INHALER [14] IH SCH (09:37)
[2016-09-24 11:31] VITALS: BP 120/62
[2016-09-24 15:03] VITALS: BP 137/72
[2016-09-24] MEDS ORDERED: 0.9% SODIUM CHLORIDE 5 ML NEB SOLUTION NEB ONE (19:04)
[2016-09-24 19:56] VITALS: BP 133/79
[2016-09-24] MEDS: OXYGEN THERAPY IH SCH (21:05)
[2016-09-25 00:33] VITALS: BP 150/89
[2016-09-25 06:01] VITALS: BP 145/75
[2016-09-25] MEDS: PANTOPRAZOLE SODIUM 40 MG DR TABLET PO SCH (06:11)
[2016-09-25] MEDS: LEVOTHYROXINE SODIUM 88 MCG TABLET PO SCH (06:11)
[2016-09-25 06:43] LABS: CALCIUM, TOTAL 7.8 mg/dL (8.8-10.5); CREATININE 0.95 mg/dL (0.60-1.30)
[2016-09-25 06:55] LABS: BASOPHILS # (AUTO) 0.06 K/uL (0.00-0.20); BASOPHILS % (AUTO) 0.9 % (0.0-2.0); EOSINOPHILS # (AUTO) 0.19 K/uL (0.00-0.70); EOSINOPHILS % (AUTO) 2.84 % (1.0-6.0); HEMATOCRIT 27.6 % (36-46); HEMOGLOBIN 9.4 g/dL (12.0-16.0); LYMPHOCYTES # (AUTO) 1.5 K/uL (1.0-4.8); LYMPHOCYTES % (AUTO) 21.8 % (22.0-44.0); MEAN CORPUSCULAR HEMOGLOBIN 35.3 pg (26.0-34.0); MEAN CORPUSCULAR HGB CONC 34.3 G/dL (31.0-37.0); MEAN CORPUSCULAR VOLUME 103 fL (80-100); MONOCYTES # (AUTO) 0.6 K/uL (0.1-1.0); MONOCYTES % (AUTO) 8.3 % (2.0-9.0); NEUTROPHILS # (AUTO) 4.4 K/uL (1.8-7.7); NEUTROPHILS % (AUTO) 66.3 % (40.0-70.0); PLATELET COUNT (AUTO) 146 K/uL (150-450); RED BLOOD CELL COUNT(AUTO) 2.67 MIL/uL (4.00-5.20); RED CELL DISTRIBUTION WIDTH 16.8 % (11.5-14.5); WHITE BLOOD COUNT (AUTO) 6.7 K/uL (4.5-11.0)
[2016-09-25] MEDS ORDERED: 0.9% SODIUM CHLORIDE 5 ML NEB SOLUTION NEB ONE (07:12)
[2016-09-25 07:14] VITALS: BP 153/88
[2016-09-25] MEDS: ALBUTEROL SULFATE 2.5 MG/0.5 ML NEB SOLUTION NEB SCH (07:43)
[2016-09-25] MEDS: OXYGEN THERAPY IH SCH (08:12)
[2016-09-25] MEDS: FLUTICASONE/VILANTEROL 200-25 MCG/INH INHALER [14] IH SCH (08:13)
[2016-09-25] MEDS: SOD FERRIC GLUC COMPLX/SUCROSE 125 MG in SODIUM CHLORIDE 0.9% 100 ML IV SCH (08:13)
[2016-09-25] MEDS: ATORVASTATIN CALCIUM 10 MG TABLET PO SCH (08:13)
[2016-09-25] MEDS: DRONABINOL 2.5 MG CAPSULE PO SCH (08:13)
[2016-09-25] MEDS: EPOETIN ALFA 10,000 UNITS/ML VIAL SQ SCH (08:14)
[2016-09-25] MEDS: CALCIUM OYSTER SHELL 250 MG-VIT D3 125 UNITS TABLET PO SCH (08:14)
[2016-09-25] MEDS: MULTIVITAMINS WITH MINERALS, THERAPEUTIC TABLET PO SCH (08:14)
[2016-09-25] MEDS: POTASSIUM PHOS M BASIC D BASIC IV SCH (09:15)
[2016-09-25] MEDS: DEXTROSE IV SCH (09:15)
[2016-09-25] MEDS: SODIUM CHL IV SCH (09:15)
[2016-09-25 10:09] LABS: RBC MORPHOLOGY COMMENT ABNORMAL RBC MORPH
[2016-09-25] MEDS ORDERED: SPIR25 PO (10:25)
[2016-09-25] MEDS ORDERED: PANT40TA25 PO (10:48)
[2016-09-25] MEDS ORDERED: METO-323 PO (10:49)
[2016-09-25] MEDS ORDERED: ALBU8HFA4 IH (10:54)
[2016-09-25] MEDS ORDERED: FLUT1BLS PO (10:55)
[2016-09-25 11:01] VITALS: BP 131/70
[2016-09-25 15:24] VITALS: BP 138/80
[2016-09-25] MEDS ORDERED: MV-M1TAB2 PO (15:24)
[2016-09-25] MEDS: ACETAMINOPHEN 325 MG TABLET PO PRN (17:02)
== END 2016-09-25 18:00 | disposition home health service (06) | DRG 871 ==
LOC: EMS 16:39 → UNDOADMIN 19:56 → 5N 19:56 → ICU 09-16 15:04 → 5N 09-16 15:04
PROVIDERS: ADMIT Internal Medicine; ATTEND Internal Medicine
DX: A41.9 Sepsis, unspecified organism (principal); E43 Unspecified severe protein-calorie malnutrition; J18.9 Pneumonia, unspecified organism; R57.8 Other shock; E87.1 Hypo-osmolality and hyponatremia; Z68.1 Body mass index [BMI] 19.9 or less, adult; A04.7 Enterocolitis due to Clostridium difficile; E87.2 Acidosis; I13.0 Hypertensive heart and chronic kidney disease with heart failure and stage 1 through stage 4 chronic kidney disease, or unspecified chronic kidney disease; N17.9 Acute kidney failure, unspecified; K86.1 Other chronic pancreatitis; R18.8 Other ascites; E86.0 Dehydration; F41.9 Anxiety disorder, unspecified; J45.909 Unspecified asthma, uncomplicated; I50.9 Heart failure, unspecified; J44.9 Chronic obstructive pulmonary disease, unspecified; F03.90 Unspecified dementia, unspecified severity, without behavioral disturbance, psychotic disturbance, mood disturbance, and anxiety; K21.9 Gastro-esophageal reflux disease without esophagitis; R62.7 Adult failure to thrive; B19.20 Unspecified viral hepatitis C without hepatic coma; K74.60 Unspecified cirrhosis of liver; D64.9 Anemia, unspecified; D71 Functional disorders of polymorphonuclear neutrophils; D69.6 Thrombocytopenia, unspecified; E03.9 Hypothyroidism, unspecified; E78.5 Hyperlipidemia, unspecified; E83.42 Hypomagnesemia; E83.39 Other disorders of phosphorus metabolism; E87.6 Hypokalemia; N18.9 Chronic kidney disease, unspecified; J47.9 Bronchiectasis, uncomplicated; Z79.899 Other long term (current) drug therapy; Z98.890 Other specified postprocedural states; Z79.82 Long term (current) use of aspirin; Z79.51 Long term (current) use of inhaled steroids; Z86.19 Personal history of other infectious and parasitic diseases
CPT/HCPCS: 71250; 76700; 76770; 82306; 82570; 83036; 83540; 83550; 83605; 83735; 84100; 84145; 84300; 84443; 84540; 86141; 86480; 87015; 87040; 87045; 87324; 87449; 89055; 92610; 93005; 93970; 94640; 96361; 96365; 96366; 96367; 96368; 97162; 99285; J0885; J1956; J2916; J3370; J3475; J3490; J7030; J7042; J7050; J7060; P9046; Q0167

== ENCOUNTER 2016-10-07 15:41 | Inpatient (IN) | payer MEDICARE, MEDICAID ==
[~2016-10-07] VITALS: Ht 152.4 cm; Wt 34.2 kg
[~2016-10-07 15:41] MED LIST changes: -ADV250 IH; +ALBU8HFA4 IH; -ALEN35TA32 PO; -ASPI-1093 PO; -AUD NEB; -CARV12 PO; -DULO30CA2 PO; +FLUT1BLS PO; +METO-323 PO; +MV-M1TAB2 PO; +PANT40TA25 PO; -PREG50 PO; -VALS160T2 PO
[2016-10-07 16:50] LABS: BASOPHILS % (AUTO) 0.5 % (0.0-2.0); EOSINOPHILS % (AUTO) 2.4 % (1.0-6.0); HEMATOCRIT 34.5 % (36-46); HEMOGLOBIN 11.2 g/dL (12.0-16.0); LYMPHOCYTES # (AUTO) 1.4 K/uL (1.0-4.8); LYMPHOCYTES % (AUTO) 18.3 % (22.0-44.0); MEAN CORPUSCULAR HEMOGLOBIN 34.5 pg (26.0-34.0); MEAN CORPUSCULAR HGB CONC 32.5 G/dL (31.0-37.0); MEAN CORPUSCULAR VOLUME 106 fL (80-100); MONOCYTES # (AUTO) 0.9 K/uL (0.1-1.0); MONOCYTES % (AUTO) 11.4 % (2.0-9.0); NEUTROPHILS % (AUTO) 67.4 % (40.0-70.0); PLATELET COUNT (AUTO) 159 K/uL (150-450); RED BLOOD CELL COUNT(AUTO) 3.25 MIL/uL (4.00-5.20); RED CELL DISTRIBUTION WIDTH 21.8 % (11.5-14.5); WHITE BLOOD COUNT (AUTO) 7.5 K/uL (4.5-11.0)
[2016-10-07 17:04] LABS: INR 1.3 (0.9-1.1); PROTHROMBIN TIME 13.3 SEC (9.4-11.6)
[2016-10-07 17:13] LABS: ALANINE AMINOTRANSFERASE 50 U/L (12-78); ALBUMIN 2.2 g/dL (3.4-5.0); ANION GAP 13 mmol/L (8-16); ASPARTATE AMINOTRANSFERASE 70 U/L (15-37); BILIRUBIN,TOTAL 0.8 mg/dL (0.1-1.0); CALCIUM, TOTAL 7.3 mg/dL (8.8-10.5); CARBON DIOXIDE 20 mmol/L (22-29); CHLORIDE 104 mmol/L (98-107); CREATINE KINASE, TOTAL 42 U/L (26-192); CREATININE 0.77 mg/dL (0.60-1.30); GLOMERULAR FILTR. RATE CALC > 60 mL/min (>60); SODIUM SERUM 137 mmol/L (136-145); TOTAL PROTEIN, SERUM 7.5 g/dL (6.4-8.2); UREA NITROGEN, BLOOD 20 mg/dL (7-18)
[2016-10-07] MEDS ORDERED: PIPERACILLIN/TAZO 3.375 GM/D5W 50 ML IV ONE (17:15)
[2016-10-07] MEDS ORDERED: VANCOMYCIN HCL 1 GM/D5% WATER 200 ML IV ONE (17:15)
[2016-10-07] MEDS ORDERED: SODIUM CHLORIDE 0.9% 1,000 ML IV ONE (17:15)
[2016-10-07 17:17] LABS: B-TYPE NATRIURETIC PEPTIDE 276 pg/mL (0-100)
[2016-10-07] MEDS ORDERED: LEVO88TA4 PO (17:17)
[2016-10-07 17:18] LABS: APPEARANCE,URINE CLEAR (CLEAR); GLUCOSE, URINE (UA) NEGATIVE (NEGATIVE); KETONES,URINE NEGATIVE (NEGATIVE); LEUKOCYTE ESTERASE ,URINE NEGATIVE (NEGATIVE); OCCULT BLOOD,URINE LARGE (NEGATIVE); PH,URINE 6.5 (5.0-8.0); PROTEIN,URINE SEE CONFIRM (NEGATIVE)
[2016-10-07 17:19] LABS: POTASSIUM 2.9 mmol/L (3.5-5.1)
[2016-10-07 17:21] LABS: ADD UA MICROSCOPIC YES
[2016-10-07] MEDS ORDERED: POTASSIUM CHLORIDE 20 MEQ ER TABLET PO ONE (17:30)
[2016-10-07] MEDS ORDERED: ACETAMINOPHEN 650 MG RECTAL SUPPOSITORY PR ONE (17:30)
[2016-10-07 17:42] LABS: SULFOSALICYLIC ACID,URINE 2+ (Negative)
[2016-10-07 17:43] LABS: SQUAMOUS EPITHELIAL CELL,UR Rare /LPF (None Seen)
[2016-10-07 17:44] LABS: COARSE GRANULAR CASTS,URINE 0-2 /LPF (None Seen); HYALINE CASTS, URINE 0-2 /LPF (None Seen)
[2016-10-07] MEDS ORDERED: ACETAMINOPHEN 1000 MG/ISO-OSM 100 ML IV ONE (17:45)
[2016-10-07] MEDS ORDERED: CefTRIAXone 1 GM/DEXTROSE 50 ML IV ONE (17:45)
[2016-10-07] MEDS ORDERED: 0.9% SODIUM CHLORIDE 10 ML SYRINGE IVP PRN (17:45)
[2016-10-07] MEDS ORDERED: ONDANSETRON HCL 4 MG/2 ML VIAL IVP PRN (17:45)
[2016-10-07] MEDS ORDERED: ACETAMINOPHEN 325 MG TABLET PO PRN (17:45)
[2016-10-07] MEDS ORDERED: MetroNIDAZOLE 500 MG/NACL 100 ML IV ONE (17:45)
[2016-10-07 17:46] LABS: TRANSITIONAL EPI CELLS,URINE Rare /LPF (None Seen)
[2016-10-08 05:11] LABS: BASOPHILS % (AUTO) 0.5 % (0.0-2.0); EOSINOPHILS % (AUTO) 4.4 % (1.0-6.0); HEMATOCRIT 33.5 % (36-46); HEMOGLOBIN 10.7 g/dL (12.0-16.0); LYMPHOCYTES # (AUTO) 0.5 K/uL (1.0-4.8); LYMPHOCYTES % (AUTO) 9.2 % (22.0-44.0); MEAN CORPUSCULAR HEMOGLOBIN 33.7 pg (26.0-34.0); MEAN CORPUSCULAR HGB CONC 32.1 G/dL (31.0-37.0); MEAN CORPUSCULAR VOLUME 105 fL (80-100); MONOCYTES # (AUTO) 0.5 K/uL (0.1-1.0); MONOCYTES % (AUTO) 9.5 % (2.0-9.0); NEUTROPHILS # (AUTO) 4.4 K/uL (1.8-7.7); NEUTROPHILS % (AUTO) 76.4 % (40.0-70.0); PLATELET COUNT (AUTO) 154 K/uL (150-450); RED BLOOD CELL COUNT(AUTO) 3.18 MIL/uL (4.00-5.20); RED CELL DISTRIBUTION WIDTH 21.9 % (11.5-14.5); WHITE BLOOD COUNT (AUTO) 5.8 K/uL (4.5-11.0)
[2016-10-08 05:21] LABS: ALANINE AMINOTRANSFERASE 47 U/L (12-78); ANION GAP 11 mmol/L (8-16); ASPARTATE AMINOTRANSFERASE 66 U/L (15-37); BILIRUBIN,TOTAL 0.9 mg/dL (0.1-1.0); CALCIUM, TOTAL 7.5 mg/dL (8.8-10.5); CARBON DIOXIDE 21 mmol/L (22-29); CHLORIDE 110 mmol/L (98-107); CREATININE 0.56 mg/dL (0.60-1.30); GLOMERULAR FILTR. RATE CALC > 60 mL/min (>60); POTASSIUM 3.2 mmol/L (3.5-5.1); SODIUM SERUM 142 mmol/L (136-145); TOTAL PROTEIN, SERUM 7.1 g/dL (6.4-8.2); UREA NITROGEN, BLOOD 19 mg/dL (7-18)
[2016-10-08 06:11] LABS: RBC MORPHOLOGY COMMENT ABNORMAL RBC MORPH
[2016-10-08] MEDS: PANTOPRAZOLE SODIUM 40 MG DR TABLET PO SCH ×2 (08:45→10:46)
[2016-10-08] MEDS ORDERED: ONDANSETRON HCL 4 MG/2 ML VIAL IVP PRN (08:45)
[2016-10-08] MEDS ORDERED: 0.9% SODIUM CHLORIDE 10 ML SYRINGE IVP PRN ×2 (08:45)
[2016-10-08] MEDS ORDERED: ALBUTEROL SULFATE 2.5 MG/0.5 ML NEB SOLUTION NEB PRN (08:45)
[2016-10-08] MEDS ORDERED: IPRATROPIUM BROMIDE 0.5 MG/2.5 ML NEB SOLUTION NEB PRN (08:45)
[2016-10-08] MEDS ORDERED: [UNRECOGNIZED DRUG - OTHER] PO SCH (09:00)
[2016-10-08 10:10] VITALS: BP 167/95
[2016-10-08] MEDS: MetroNIDAZOLE 250 MG/NACL 50 ML IV SCH ×2 (10:46→18:42)
[2016-10-08] MEDS: HEPARIN SODIUM,PORCINE 5,000 UNITS/ML VIAL SQ SCH ×2 (10:46→21:59)
[2016-10-08] MEDS: FLUTICASONE/VILANTEROL 200-25 MCG/INH INHALER [14] IH SCH (10:47)
[2016-10-08] MEDS: LEVOTHYROXINE SODIUM 88 MCG TABLET PO SCH (10:48)
[2016-10-08] MEDS: DRONABINOL 2.5 MG CAPSULE PO SCH ×2 (10:48→21:59)
[2016-10-08] MEDS: CALCIUM OYSTER SHELL 250 MG-VIT D3 125 UNITS TABLET PO SCH (10:49)
[2016-10-08] MEDS: MEMANTINE HCL 10 MG TABLET PO SCH ×2 (10:49→21:59)
[2016-10-08] MEDS ORDERED: [UNRECOGNIZED DRUG - REMARK] PO SCH (11:30)
[2016-10-08 15:00] VITALS: BP 168/81
[2016-10-08] MEDS: ACETAMINOPHEN 325 MG TABLET PO PRN (18:46)
[2016-10-08 18:47] VITALS: BP 134/109
[2016-10-08] MEDS: CefTRIAXone 1 GM/DEXTROSE 50 ML IV SCH (18:47)
[2016-10-08] MEDS: POTASSIUM CHLORIDE 20 MEQ ER TABLET PO PRN (20:44)
[2016-10-08 21:10] VITALS: BP 126/92
[2016-10-08] MEDS: METOPROLOL SUCCINATE 25 MG ER TABLET PO SCH (21:59)
[2016-10-08] MEDS: ATORVASTATIN CALCIUM 20 MG TABLET PO SCH (21:59)
[2016-10-08 23:55] VITALS: BP 103/53
[2016-10-09] MEDS ORDERED: SODIUM CHLORIDE 0.9% 250 ML IV ONE (00:15)
[2016-10-09] MEDS: MetroNIDAZOLE 250 MG/NACL 50 ML IV SCH ×3 (00:41→17:14)
[2016-10-09 04:55] VITALS: BP 143/81
[2016-10-09] MEDS: HYDROCODONE/ACETAMINOPHEN 5-325 MG TABLET PO PRN (05:38)
[2016-10-09] MEDS: LEVOTHYROXINE SODIUM 88 MCG TABLET PO SCH (05:47)
[2016-10-09] MEDS: PANTOPRAZOLE SODIUM 40 MG DR TABLET PO SCH ×2 (06:30→06:44)
[2016-10-09 07:46] VITALS: BP 126/73
[2016-10-09 07:57] LABS: POTASSIUM 3.9 mmol/L (3.5-5.1)
[2016-10-09] MEDS: SPIRONOLACTONE 25 MG TABLET PO SCH (08:51)
[2016-10-09] MEDS: FLUTICASONE/VILANTEROL 200-25 MCG/INH INHALER [14] IH SCH (08:51)
[2016-10-09] MEDS: MEMANTINE HCL 10 MG TABLET PO SCH ×2 (08:52→20:09)
[2016-10-09] MEDS: DRONABINOL 2.5 MG CAPSULE PO SCH ×2 (08:52→20:09)
[2016-10-09] MEDS: CALCIUM OYSTER SHELL 250 MG-VIT D3 125 UNITS TABLET PO SCH (08:52)
[2016-10-09] MEDS: HEPARIN SODIUM,PORCINE 5,000 UNITS/ML VIAL SQ SCH ×2 (08:53→20:09)
[2016-10-09 09:02] LABS: BASOPHILS % (AUTO) 0.8 % (0.0-2.0); EOSINOPHILS % (AUTO) 6.5 % (1.0-6.0); HEMATOCRIT 33.8 % (36-46); HEMOGLOBIN 10.9 g/dL (12.0-16.0); LYMPHOCYTES # (AUTO) 0.6 K/uL (1.0-4.8); LYMPHOCYTES % (AUTO) 16.1 % (22.0-44.0); MEAN CORPUSCULAR HEMOGLOBIN 34.5 pg (26.0-34.0); MEAN CORPUSCULAR HGB CONC 32.3 G/dL (31.0-37.0); MEAN CORPUSCULAR VOLUME 107 fL (80-100); MONOCYTES # (AUTO) 0.3 K/uL (0.1-1.0); MONOCYTES % (AUTO) 8.4 % (2.0-9.0); NEUTROPHILS # (AUTO) 2.4 K/uL (1.8-7.7); NEUTROPHILS % (AUTO) 68.2 % (40.0-70.0); PLATELET COUNT (AUTO) 169 K/uL (150-450); RED BLOOD CELL COUNT(AUTO) 3.17 MIL/uL (4.00-5.20); RED CELL DISTRIBUTION WIDTH 21.6 % (11.5-14.5); WHITE BLOOD COUNT (AUTO) 3.5 K/uL (4.5-11.0)
[2016-10-09 09:05] LABS: INR 1.1 (0.9-1.1); PROTHROMBIN TIME 12.1 SEC (9.4-11.6)
[2016-10-09 09:36] LABS: ALBUMIN 2.2 g/dL (3.4-5.0); BILIRUBIN,TOTAL 0.6 mg/dL (0.1-1.0); CHOL/HDL RATIO 5.3 (3.9-5.7); THYROID STIMULATING HORMONE 3.56 uIU/mL (0.36-3.74); TOTAL PROTEIN, SERUM 7.5 g/dL (6.4-8.2)
[2016-10-09 09:42] LABS: BILIRUBIN,DIRECT 0.3 mg/dL (0.00-0.20)
[2016-10-09 09:48] LABS: PROCALCITONIN (PCT) 0.42 ng/mL (<0.50)
[2016-10-09 10:13] LABS: HEMOGLOBIN A1C 4.6 % (4.5-6.2)
[2016-10-09 10:41] LABS: RBC MORPHOLOGY COMMENT ABNORMAL RBC MORPH
[2016-10-09 11:27] VITALS: BP 126/66
[2016-10-09 12:12] LABS: GLUCOSE,POINT OF CARE 71 MG/DL (70-110)
[2016-10-09 15:32] VITALS: BP_SYST 149; BP_SYST 167; BP_DIAS 76; BP_DIAS 96
[2016-10-09 17:19] LABS: INFLUENZA TYPE B NEGATIVE FOR TYPE B (NEGATIVE)
[2016-10-09] MEDS: CefTRIAXone 1 GM/DEXTROSE 50 ML IV SCH (18:37)
[2016-10-09 20:05] VITALS: BP 171/79
[2016-10-09] MEDS: ATORVASTATIN CALCIUM 20 MG TABLET PO SCH (20:09)
[2016-10-09] MEDS: METOPROLOL SUCCINATE 25 MG ER TABLET PO SCH (20:09)
[2016-10-09 23:24] VITALS: BP 164/80
[2016-10-10] MEDS: MetroNIDAZOLE 250 MG/NACL 50 ML IV SCH ×4 (01:48→23:51)
[2016-10-10 04:11] VITALS: BP 176/89
[2016-10-10] MEDS: HYDROCODONE/ACETAMINOPHEN 5-325 MG TABLET PO PRN (04:27)
[2016-10-10] MEDS: LEVOTHYROXINE SODIUM 88 MCG TABLET PO SCH (05:55)
[2016-10-10] MEDS: PANTOPRAZOLE SODIUM 40 MG DR TABLET PO SCH ×2 (05:55→05:56)
[2016-10-10 07:32] VITALS: BP 163/140
[2016-10-10 07:51] LABS: ALANINE AMINOTRANSFERASE 35 U/L (12-78); ANION GAP 11 mmol/L (8-16); ASPARTATE AMINOTRANSFERASE 46 U/L (15-37); BILIRUBIN,TOTAL 0.4 mg/dL (0.1-1.0); CALCIUM, TOTAL 7.8 mg/dL (8.8-10.5); CARBON DIOXIDE 20 mmol/L (22-29); CHLORIDE 109 mmol/L (98-107); CREATININE 0.63 mg/dL (0.60-1.30); GLOMERULAR FILTR. RATE CALC > 60 mL/min (>60); POTASSIUM 3.5 mmol/L (3.5-5.1); SODIUM SERUM 140 mmol/L (136-145); TOTAL PROTEIN, SERUM 6.9 g/dL (6.4-8.2); UREA NITROGEN, BLOOD 12 mg/dL (7-18)
[2016-10-10] MEDS: FLUTICASONE/VILANTEROL 200-25 MCG/INH INHALER [14] IH SCH (08:49)
[2016-10-10] MEDS: DRONABINOL 2.5 MG CAPSULE PO SCH ×2 (08:49→20:35)
[2016-10-10] MEDS: MEMANTINE HCL 10 MG TABLET PO SCH ×2 (08:49→20:34)
[2016-10-10] MEDS: SPIRONOLACTONE 25 MG TABLET PO SCH (08:49)
[2016-10-10] MEDS: HEPARIN SODIUM,PORCINE 5,000 UNITS/ML VIAL SQ SCH ×2 (08:50→20:35)
[2016-10-10] MEDS: CALCIUM OYSTER SHELL 250 MG-VIT D3 125 UNITS TABLET PO SCH (08:50)
[2016-10-10 11:15] VITALS: BP 137/66
[2016-10-10 15:00] VITALS: BP 145/100
[2016-10-10 19:42] VITALS: BP 159/81
[2016-10-10] MEDS: ATORVASTATIN CALCIUM 20 MG TABLET PO SCH (20:34)
[2016-10-10] MEDS: METOPROLOL SUCCINATE 25 MG ER TABLET PO SCH (20:34)
[2016-10-10] MEDS: CefTRIAXone 1 GM/DEXTROSE 50 ML IV SCH (20:35)
[2016-10-11] VITALS (7 sets, daily range): BP systolic 142–166; BP diastolic 62–85
[2016-10-11] MEDS: HYDROCODONE/ACETAMINOPHEN 5-325 MG TABLET PO PRN ×2 (04:16→19:52)
[2016-10-11] MEDS: LEVOTHYROXINE SODIUM 88 MCG TABLET PO SCH (05:07)
[2016-10-11] MEDS: PANTOPRAZOLE SODIUM 40 MG DR TABLET PO SCH ×2 (05:07)
[2016-10-11] MEDS: DRONABINOL 2.5 MG CAPSULE PO SCH ×2 (08:40→19:52)
[2016-10-11] MEDS: CALCIUM OYSTER SHELL 250 MG-VIT D3 125 UNITS TABLET PO SCH (08:40)
[2016-10-11] MEDS: HEPARIN SODIUM,PORCINE 5,000 UNITS/ML VIAL SQ SCH ×2 (08:40→19:52)
[2016-10-11] MEDS: MEMANTINE HCL 10 MG TABLET PO SCH ×2 (08:40→19:51)
[2016-10-11] MEDS: SPIRONOLACTONE 25 MG TABLET PO SCH (08:41)
[2016-10-11] MEDS: MetroNIDAZOLE 250 MG/NACL 50 ML IV SCH ×2 (08:41→16:06)
[2016-10-11] MEDS: FLUTICASONE/VILANTEROL 200-25 MCG/INH INHALER [14] IH SCH (08:41)
[2016-10-11 10:44] LABS: ALANINE AMINOTRANSFERASE 31 U/L (12-78); ALBUMIN 2.1 g/dL (3.4-5.0); ANION GAP 10 mmol/L (8-16); ASPARTATE AMINOTRANSFERASE 52 U/L (15-37); BILIRUBIN,TOTAL 0.3 mg/dL (0.1-1.0); CALCIUM, TOTAL 7.8 mg/dL (8.8-10.5); CARBON DIOXIDE 21 mmol/L (22-29); CHLORIDE 109 mmol/L (98-107); CREATININE 0.72 mg/dL (0.60-1.30); GLOMERULAR FILTR. RATE CALC > 60 mL/min (>60); POTASSIUM 3.5 mmol/L (3.5-5.1); SODIUM SERUM 140 mmol/L (136-145); TOTAL PROTEIN, SERUM 7.2 g/dL (6.4-8.2); UREA NITROGEN, BLOOD 16 mg/dL (7-18)
[2016-10-11] MEDS: CefTRIAXone 1 GM/DEXTROSE 50 ML IV SCH (18:48)
[2016-10-11] MEDS: ATORVASTATIN CALCIUM 20 MG TABLET PO SCH (19:51)
[2016-10-11] MEDS: METOPROLOL SUCCINATE 25 MG ER TABLET PO SCH (19:51)
[2016-10-12] MEDS: MetroNIDAZOLE 250 MG/NACL 50 ML IV SCH ×3 (01:57→16:31)
[2016-10-12] MEDS ORDERED: SODIUM CHLORIDE 0.9% 250 ML IV ONE (03:07)
[2016-10-12] MEDS: PANTOPRAZOLE SODIUM 40 MG DR TABLET PO SCH ×2 (06:17)
[2016-10-12] MEDS: LEVOTHYROXINE SODIUM 88 MCG TABLET PO SCH (06:17)
[2016-10-12 08:32] LABS: ALANINE AMINOTRANSFERASE 29 U/L (12-78); ALBUMIN 2.1 g/dL (3.4-5.0); ANION GAP 11 mmol/L (8-16); ASPARTATE AMINOTRANSFERASE 44 U/L (15-37); BILIRUBIN,TOTAL 0.3 mg/dL (0.1-1.0); CARBON DIOXIDE 22 mmol/L (22-29); CHLORIDE 114 mmol/L (98-107); CREATININE 0.63 mg/dL (0.60-1.30); GLOMERULAR FILTR. RATE CALC > 60 mL/min (>60); POTASSIUM 3.2 mmol/L (3.5-5.1); SODIUM SERUM 147 mmol/L (136-145); UREA NITROGEN, BLOOD 13 mg/dL (7-18)
[2016-10-12] MEDS: SPIRONOLACTONE 25 MG TABLET PO SCH (11:05)
[2016-10-12] MEDS: HEPARIN SODIUM,PORCINE 5,000 UNITS/ML VIAL SQ SCH ×2 (11:05→21:12)
[2016-10-12] MEDS: MEMANTINE HCL 10 MG TABLET PO SCH ×2 (11:05→21:12)
[2016-10-12] MEDS: DRONABINOL 2.5 MG CAPSULE PO SCH ×2 (11:05→21:12)
[2016-10-12 11:06] VITALS: BP 165/96
[2016-10-12] MEDS: CALCIUM OYSTER SHELL 250 MG-VIT D3 125 UNITS TABLET PO SCH (11:06)
[2016-10-12] MEDS: FLUTICASONE/VILANTEROL 200-25 MCG/INH INHALER [14] IH SCH (11:06)
[2016-10-12] MEDS: POTASSIUM CHLORIDE 20 MEQ ER TABLET PO PRN (11:08)
[2016-10-12 12:51] VITALS: BP 116/63
[2016-10-12 16:31] VITALS: BP 149/84
[2016-10-12] MEDS: CefTRIAXone 1 GM/DEXTROSE 50 ML IV SCH (18:39)
[2016-10-12 19:36] VITALS: BP 150/66
[2016-10-12] MEDS: ATORVASTATIN CALCIUM 20 MG TABLET PO SCH (21:12)
[2016-10-12] MEDS: METOPROLOL SUCCINATE 25 MG ER TABLET PO SCH (21:12)
[2016-10-12] MEDS: CefoTEtan DISOD 1 GM/DEXTROSE 50 ML IV SCH (22:02)
[2016-10-12 23:59] VITALS: BP 145/80
[2016-10-13] MEDS: ACETAMINOPHEN 325 MG TABLET PO PRN (00:21)
[2016-10-13 05:32] VITALS: BP 110/63
[2016-10-13] MEDS: PANTOPRAZOLE SODIUM 40 MG DR TABLET PO SCH ×2 (05:58)
[2016-10-13] MEDS: LEVOTHYROXINE SODIUM 88 MCG TABLET PO SCH (05:58)
[2016-10-13 06:45] LABS: BASOPHILS % (AUTO) 1.1 % (0.0-2.0); EOSINOPHILS % (AUTO) 3.4 % (1.0-6.0); HEMATOCRIT 30.2 % (36-46); LYMPHOCYTES # (AUTO) 1.3 K/uL (1.0-4.8); LYMPHOCYTES % (AUTO) 30.8 % (22.0-44.0); MEAN CORPUSCULAR HEMOGLOBIN 34.9 pg (26.0-34.0); MEAN CORPUSCULAR VOLUME 106 fL (80-100); MONOCYTES # (AUTO) 0.6 K/uL (0.1-1.0); MONOCYTES % (AUTO) 15.5 % (2.0-9.0); NEUTROPHILS % (AUTO) 49.2 % (40.0-70.0); PLATELET COUNT (AUTO) 156 K/uL (150-450); RED BLOOD CELL COUNT(AUTO) 2.86 MIL/uL (4.00-5.20); RED CELL DISTRIBUTION WIDTH 20.7 % (11.5-14.5); WHITE BLOOD COUNT (AUTO) 4.1 K/uL (4.5-11.0)
[2016-10-13 07:05] LABS: ALANINE AMINOTRANSFERASE 24 U/L (12-78); ANION GAP 9 mmol/L (8-16); ASPARTATE AMINOTRANSFERASE 38 U/L (15-37); BILIRUBIN,TOTAL 0.3 mg/dL (0.1-1.0); CALCIUM, TOTAL 7.6 mg/dL (8.8-10.5); CARBON DIOXIDE 21 mmol/L (22-29); CHLORIDE 111 mmol/L (98-107); GLOMERULAR FILTR. RATE CALC > 60 mL/min (>60); POTASSIUM 3.7 mmol/L (3.5-5.1); SODIUM SERUM 141 mmol/L (136-145); TOTAL PROTEIN, SERUM 6.8 g/dL (6.4-8.2); UREA NITROGEN, BLOOD 12 mg/dL (7-18)
[2016-10-13 07:20] LABS: RBC MORPHOLOGY COMMENT ABNORMAL RBC MORPH
[2016-10-13 07:36] VITALS: BP 148/66
[2016-10-13] MEDS: DRONABINOL 2.5 MG CAPSULE PO SCH ×2 (08:57→20:22)
[2016-10-13] MEDS: HEPARIN SODIUM,PORCINE 5,000 UNITS/ML VIAL SQ SCH ×2 (08:57→20:22)
[2016-10-13] MEDS: MEMANTINE HCL 10 MG TABLET PO SCH ×2 (08:57→20:22)
[2016-10-13] MEDS: SPIRONOLACTONE 25 MG TABLET PO SCH (08:57)
[2016-10-13] MEDS: CALCIUM OYSTER SHELL 250 MG-VIT D3 125 UNITS TABLET PO SCH (08:58)
[2016-10-13] MEDS: FLUTICASONE/VILANTEROL 200-25 MCG/INH INHALER [14] IH SCH (08:58)
[2016-10-13] MEDS: CefoTEtan DISOD 1 GM/DEXTROSE 50 ML IV SCH ×2 (09:47→19:52)
[2016-10-13 11:34] VITALS: BP 150/76
[2016-10-13 15:16] VITALS: BP 142/68
[2016-10-13 19:48] VITALS: BP 145/69
[2016-10-13] MEDS ORDERED: SODIUM CHLORIDE 0.9% 250 ML IV ONE (19:54)
[2016-10-13] MEDS: METOPROLOL SUCCINATE 25 MG ER TABLET PO SCH (20:22)
[2016-10-13] MEDS: ATORVASTATIN CALCIUM 20 MG TABLET PO SCH (20:22)
[2016-10-13 23:44] VITALS: BP 149/75
[2016-10-14] MEDS ORDERED: SODIUM CHLORIDE 0.9% 250 ML IV ONE (01:06)
[2016-10-14 04:53] VITALS: BP 151/85
[2016-10-14] MEDS: PANTOPRAZOLE SODIUM 40 MG DR TABLET PO SCH ×2 (06:01→06:03)
[2016-10-14] MEDS: LEVOTHYROXINE SODIUM 88 MCG TABLET PO SCH (06:01)
[2016-10-14 07:32] LABS: ALANINE AMINOTRANSFERASE 23 U/L (12-78); ALBUMIN 2.2 g/dL (3.4-5.0); ANION GAP 12 mmol/L (8-16); ASPARTATE AMINOTRANSFERASE 47 U/L (15-37); BILIRUBIN,TOTAL 0.4 mg/dL (0.1-1.0); CALCIUM, TOTAL 7.9 mg/dL (8.8-10.5); CARBON DIOXIDE 22 mmol/L (22-29); CHLORIDE 105 mmol/L (98-107); CREATININE 0.79 mg/dL (0.60-1.30); GLOMERULAR FILTR. RATE CALC > 60 mL/min (>60); POTASSIUM 4.1 mmol/L (3.5-5.1); SODIUM SERUM 139 mmol/L (136-145); TOTAL PROTEIN, SERUM 7.6 g/dL (6.4-8.2); UREA NITROGEN, BLOOD 11 mg/dL (7-18)
[2016-10-14 07:41] VITALS: BP 146/75
[2016-10-14] MEDS ORDERED: DICLOFENAC SODIUM 1% 100 GM GEL [2GM] TP PRN (08:45)
[2016-10-14] MEDS: MEMANTINE HCL 10 MG TABLET PO SCH (09:25)
[2016-10-14] MEDS: CALCIUM OYSTER SHELL 250 MG-VIT D3 125 UNITS TABLET PO SCH (09:25)
[2016-10-14] MEDS: SPIRONOLACTONE 25 MG TABLET PO SCH (09:25)
[2016-10-14] MEDS: HEPARIN SODIUM,PORCINE 5,000 UNITS/ML VIAL SQ SCH (09:26)
[2016-10-14] MEDS: FLUTICASONE/VILANTEROL 200-25 MCG/INH INHALER [14] IH SCH (09:26)
[2016-10-14] MEDS: DRONABINOL 2.5 MG CAPSULE PO SCH (09:27)
[2016-10-14] MEDS: CefoTEtan DISOD 1 GM/DEXTROSE 50 ML IV SCH (09:33)
[2016-10-14 12:00] VITALS: BP 138/72
[2016-10-14] MEDS ORDERED: HEPARIN SODIUM 1000 UNITS/NS 500 ML ONE (15:20)
[2016-10-14 17:04] VITALS: BP 142/80
== END 2016-10-14 19:50 | DRG 871 ==
LOC: EMS 15:43 → AHU 20:26 → 5N 20:26 → AHU 10-08 08:57 → 5S 10-08 20:50
PROVIDERS: ADMIT Internal Medicine; ATTEND Internal Medicine
PROC: 02HV33Z Insertion of Infusion Device into Superior Vena Cava, Percutaneous Approach (ICD-10-PCS; principal; 2016-10-14)
PROC: B548ZZA Ultrasonography of Superior Vena Cava, Guidance (ICD-10-PCS; 2016-10-14)
DX: A41.9 Sepsis, unspecified organism (principal); J18.9 Pneumonia, unspecified organism; J15.5 Pneumonia due to Escherichia coli; J44.0 Chronic obstructive pulmonary disease with (acute) lower respiratory infection; E46 Unspecified protein-calorie malnutrition; A15.9 Respiratory tuberculosis unspecified; E87.0 Hyperosmolality and hypernatremia; I85.10 Secondary esophageal varices without bleeding; J90 Pleural effusion, not elsewhere classified; I50.30 Unspecified diastolic (congestive) heart failure; Z68.1 Body mass index [BMI] 19.9 or less, adult; B19.20 Unspecified viral hepatitis C without hepatic coma; J45.909 Unspecified asthma, uncomplicated; I11.0 Hypertensive heart disease with heart failure; K74.60 Unspecified cirrhosis of liver; K21.9 Gastro-esophageal reflux disease without esophagitis; F03.90 Unspecified dementia, unspecified severity, without behavioral disturbance, psychotic disturbance, mood disturbance, and anxiety; E87.6 Hypokalemia; E78.5 Hyperlipidemia, unspecified; E03.9 Hypothyroidism, unspecified; R16.1 Splenomegaly, not elsewhere classified; R19.7 Diarrhea, unspecified; D64.9 Anemia, unspecified; F29 Unspecified psychosis not due to a substance or known physiological condition; K62.3 Rectal prolapse; F41.9 Anxiety disorder, unspecified; Z79.51 Long term (current) use of inhaled steroids; Z79.899 Other long term (current) drug therapy; Z74.01 Bed confinement status; Z98.890 Other specified postprocedural states; Z86.19 Personal history of other infectious and parasitic diseases
CPT/HCPCS: 36245; 36569; 82962; 83036; 83605; 84132; 84145; 84443; 87040; 87070; 87081; 87106; 87205; 87804; 93005; 93970; 96365; 96366; 96368; 97163; 97530; 99285; G0238; J0131; J0696; J1644; J2543; J3370; J3490; J7030; J7050; Q0167

== ENCOUNTER 2016-11-17 14:53 | Inpatient (IN) | payer MEDICARE, MEDICAID ==
[~2016-11-17] VITALS: Ht 149.9 cm; Wt 35.4 kg
[2016-11-17 11:59] VITALS: BP 90/51
[~2016-11-17 14:53] MED LIST changes: -LEVO75 PO; +LEVO88TA4 PO
[2016-11-17] MEDS ORDERED: ACETAMINOPHEN 1000 MG/ISO-OSM 100 ML IV ONE (16:30)
[2016-11-17] MEDS ORDERED: SODIUM CHLORIDE 0.9% 1,000 ML IV ONE ×4 (16:30→18:30)
[2016-11-17 16:51] LABS: BASOPHILS % (AUTO) 0.6 % (0.0-2.0); EOSINOPHILS % (AUTO) 4.3 % (1.0-6.0); HEMATOCRIT 31.7 % (36-46); HEMOGLOBIN 10.4 g/dL (12.0-16.0); LYMPHOCYTES # (AUTO) 1.6 K/uL (1.0-4.8); MEAN CORPUSCULAR HEMOGLOBIN 32.6 pg (26.0-34.0); MEAN CORPUSCULAR HGB CONC 32.8 G/dL (31.0-37.0); MEAN CORPUSCULAR VOLUME 99 fL (80-100); MONOCYTES # (AUTO) 0.6 K/uL (0.1-1.0); NEUTROPHILS # (AUTO) 2.6 K/uL (1.8-7.7); NEUTROPHILS % (AUTO) 51.1 % (40.0-70.0); PLATELET COUNT (AUTO) 147 K/uL (150-450); RED BLOOD CELL COUNT(AUTO) 3.19 MIL/uL (4.00-5.20); RED CELL DISTRIBUTION WIDTH 18.2 % (11.5-14.5); WHITE BLOOD COUNT (AUTO) 5.1 K/uL (4.5-11.0)
[2016-11-17 17:01] LABS: GLUCOSE,POINT OF CARE 124 MG/DL (70-110)
[2016-11-17 17:12] LABS: ANION GAP 11 mmol/L (8-16); CALCIUM, TOTAL 8.5 mg/dL (8.8-10.5); CARBON DIOXIDE 18 mmol/L (22-29); CHLORIDE 109 mmol/L (98-107); CREATININE 0.92 mg/dL (0.60-1.30); GLOMERULAR FILTR. RATE CALC 58 mL/min (>60); POTASSIUM 3.6 mmol/L (3.5-5.1); SODIUM SERUM 138 mmol/L (136-145); UREA NITROGEN, BLOOD 24 mg/dL (7-18)
[2016-11-17 17:27] LABS: ALANINE AMINOTRANSFERASE 36 U/L (12-78); ALBUMIN 2.2 g/dL (3.4-5.0); ASPARTATE AMINOTRANSFERASE 51 U/L (15-37); B-TYPE NATRIURETIC PEPTIDE 95 pg/mL (0-100); BILIRUBIN,TOTAL 0.4 mg/dL (0.1-1.0); CREATINE KINASE, TOTAL 19 U/L (26-192); TOTAL PROTEIN, SERUM 7.6 g/dL (6.4-8.2)
[2016-11-17] MEDS ORDERED: CefTRIAXone 1 GM/DEXTROSE 50 ML IV ONE (18:00)
[2016-11-17] MEDS ORDERED: AZITHROMYCIN 500 MG/NS 250 ML IV ONE (18:00)
[2016-11-17] MEDS ORDERED: 0.9% SODIUM CHLORIDE 10 ML SYRINGE IVP PRN (23:45)
[2016-11-18] MEDS ORDERED: ONDANSETRON HCL 4 MG/2 ML VIAL IVP PRN (00:15)
[2016-11-18] MEDS ORDERED: IPRATROPIUM BROMIDE 0.5 MG/2.5 ML NEB SOLUTION NEB PRN (00:15)
[2016-11-18] MEDS ORDERED: MAGNESIUM HYDROXIDE SUSPENSION 30 ML UDCUP PO PRN (00:15)
[2016-11-18] MEDS ORDERED: BISACODYL 10 MG RECTAL RECTAL SUPPOSITORY PR PRN (00:15)
[2016-11-18] MEDS ORDERED: ALBUTEROL SULFATE 2.5 MG/0.5 ML NEB SOLUTION NEB PRN (00:15)
[2016-11-18] MEDS ORDERED: ACETAMINOPHEN 325 MG TABLET PO PRN (00:15)
[2016-11-18] MEDS ORDERED: OxyCODONE HCL/ACETAMINOPHEN 5-325 MG TABLET PO PRN (00:15)
[2016-11-18] MEDS ORDERED: ZOLPIDEM TARTRATE 5 MG TABLET PO PRN (00:15)
[2016-11-18 05:19] VITALS: BP 133/81
[2016-11-18] MEDS: PANTOPRAZOLE SODIUM 40 MG DR TABLET PO SCH (06:24)
[2016-11-18] MEDS: LEVOTHYROXINE SODIUM 88 MCG TABLET PO SCH (06:27)
[2016-11-18] MEDS ORDERED: [UNRECOGNIZED DRUG - REMARK] PO SCH (07:30)
[2016-11-18 07:55] VITALS: BP 148/87
[2016-11-18] MEDS ORDERED: PANTOPRAZOLE SODIUM 40 MG DR TABLET PO SCH (09:00)
[2016-11-18] MEDS: FLUTICASONE/VILANTEROL 200-25 MCG/INH INHALER [14] IH SCH (09:58)
[2016-11-18] MEDS: SPIRONOLACTONE 25 MG TABLET PO SCH (09:58)
[2016-11-18] MEDS: DRONABINOL 2.5 MG CAPSULE PO SCH ×2 (09:58→20:26)
[2016-11-18] MEDS: MEMANTINE HCL 10 MG TABLET PO SCH ×2 (09:58→20:26)
[2016-11-18] MEDS: CALCIUM OYSTER SHELL 250 MG-VIT D3 125 UNITS TABLET PO SCH (09:58)
[2016-11-18 11:34] VITALS: BP 118/72
[2016-11-18 15:34] VITALS: BP 136/82
[2016-11-18] MEDS ORDERED: IOVERSOL 350 MG/ML 100 ML VIAL ONE (16:00)
[2016-11-18] MEDS ORDERED: SODIUM CHLORIDE 0.9% 100 ML ONE (16:00)
[2016-11-18] MEDS ORDERED: CefTRIAXone 1 GM/DEXTROSE 50 ML IV SCH (18:00)
[2016-11-18] MEDS ORDERED: AZITHROMYCIN 500 MG/NS 250 ML IV SCH (19:00)
[2016-11-18] MEDS ORDERED: SODIUM CHLORIDE 0.9% 50 ML ONE (19:21)
[2016-11-18 19:36] VITALS: BP 130/78
[2016-11-18] MEDS: ATORVASTATIN CALCIUM 10 MG TABLET PO SCH (20:26)
[2016-11-18] MEDS: DONEPEZIL HCL 10 MG TABLET PO SCH (20:26)
[2016-11-18] MEDS: METOPROLOL SUCCINATE 25 MG ER TABLET PO SCH (20:26)
[2016-11-19] VITALS (7 sets, daily range): BP systolic 108–182; BP diastolic 60–94
[2016-11-19] MEDS: PANTOPRAZOLE SODIUM 40 MG DR TABLET PO SCH (06:02)
[2016-11-19] MEDS: LEVOTHYROXINE SODIUM 88 MCG TABLET PO SCH (06:02)
[2016-11-19] MEDS ORDERED: IPRATROPIUM BROMIDE 0.5 MG/2.5 ML NEB SOLUTION NEB PRN (08:00)
[2016-11-19] MEDS ORDERED: LEVALBUTEROL HCL 1.25 MG/0.5 ML NEB SOLUTION NEB PRN (08:00)
[2016-11-19] MEDS: SPIRONOLACTONE 25 MG TABLET PO SCH (09:01)
[2016-11-19] MEDS: MEMANTINE HCL 10 MG TABLET PO SCH ×2 (09:01→20:36)
[2016-11-19] MEDS: FLUTICASONE/VILANTEROL 200-25 MCG/INH INHALER [14] IH SCH (09:01)
[2016-11-19] MEDS: DRONABINOL 2.5 MG CAPSULE PO SCH ×2 (09:01→20:39)
[2016-11-19] MEDS: CALCIUM OYSTER SHELL 250 MG-VIT D3 125 UNITS TABLET PO SCH (09:02)
[2016-11-19] MEDS: GuaiFENesin SR 600 MG ER TABLET PO SCH ×2 (09:02→20:36)
[2016-11-19] MEDS: LEVALBUTEROL HCL 1.25 MG/0.5 ML NEB SOLUTION NEB SCH ×3 (09:17→23:40)
[2016-11-19] MEDS: IPRATROPIUM BROMIDE 0.5 MG/2.5 ML NEB SOLUTION NEB SCH ×3 (09:17→23:39)
[2016-11-19] MEDS ORDERED: [UNRECOGNIZED DRUG - OTHER] TP SCH ×2 (11:15→11:18)
[2016-11-19] MEDS: [UNRECOGNIZED DRUG - OTHER] TP SCH (13:35)
[2016-11-19 15:00] LABS: APPEARANCE,URINE CLEAR (CLEAR); GLUCOSE, URINE (UA) NEGATIVE (NEGATIVE); OCCULT BLOOD,URINE LARGE (NEGATIVE); PROTEIN,URINE NEGATIVE (NEGATIVE)
[2016-11-19 15:01] LABS: ADD UA MICROSCOPIC YES; KETONES,URINE NEGATIVE (NEGATIVE); LEUKOCYTE ESTERASE ,URINE NEGATIVE (NEGATIVE); WBC,URINE 0-2 /HPF (0-5)
[2016-11-19 15:02] LABS: SQUAMOUS EPITHELIAL CELL,UR Few /LPF (None Seen)
[2016-11-19] MEDS ORDERED: LIDOCAINE HCL/PF 1% 2 ML VIAL IM ONE (17:45)
[2016-11-19] MEDS ORDERED: LIDOCAINE HCL/PF 1% 2 ML VIAL IM SCH (18:00)
[2016-11-19] MEDS ORDERED: CefTRIAXone SODIUM 1 GM/VIAL IM SCH (18:00)
[2016-11-19] MEDS: MIRTAZAPINE 15 MG TABLET PO SCH (20:36)
[2016-11-19] MEDS: METOPROLOL SUCCINATE 25 MG ER TABLET PO SCH (20:36)
[2016-11-19] MEDS: DONEPEZIL HCL 10 MG TABLET PO SCH (20:36)
[2016-11-19] MEDS: ATORVASTATIN CALCIUM 10 MG TABLET PO SCH (20:36)
[2016-11-19 20:42] LABS: INR 1.2 (0.9-1.1); PROTHROMBIN TIME 12.2 SEC (9.4-11.6)
[2016-11-19] MEDS: LOSARTAN POTASSIUM 50 MG TABLET PO SCH (23:08)
[2016-11-19] MEDS: CefTRIAXone 1 GM/DEXTROSE 50 ML IV SCH (23:08)
[2016-11-20] VITALS (10 sets, daily range): BP systolic 95–188; BP diastolic 51–106
[2016-11-20] MEDS: LEVOTHYROXINE SODIUM 88 MCG TABLET PO SCH (06:37)
[2016-11-20] MEDS: PANTOPRAZOLE SODIUM 40 MG DR TABLET PO SCH (06:37)
[2016-11-20] MEDS: IPRATROPIUM BROMIDE 0.5 MG/2.5 ML NEB SOLUTION NEB SCH ×2 (07:38→16:00)
[2016-11-20] MEDS: LEVALBUTEROL HCL 1.25 MG/0.5 ML NEB SOLUTION NEB SCH ×2 (07:38→16:00)
[2016-11-20] MEDS ORDERED: CloNIDine HCL 0.1 MG TABLET PO PRN (08:15)
[2016-11-20 08:19] LABS: ALANINE AMINOTRANSFERASE 44 U/L (12-78); ALBUMIN 2.5 g/dL (3.4-5.0); ANION GAP 13 mmol/L (8-16); ASPARTATE AMINOTRANSFERASE 71 U/L (15-37); BILIRUBIN,TOTAL 0.6 mg/dL (0.1-1.0); CALCIUM, TOTAL 8.9 mg/dL (8.8-10.5); CARBON DIOXIDE 19 mmol/L (22-29); CHLORIDE 103 mmol/L (98-107); CREATININE 0.74 mg/dL (0.60-1.30); GLOMERULAR FILTR. RATE CALC > 60 mL/min (>60); POTASSIUM 5.1 mmol/L (3.5-5.1); SODIUM SERUM 135 mmol/L (136-145); TOTAL PROTEIN, SERUM 9.2 g/dL (6.4-8.2); UREA NITROGEN, BLOOD 17 mg/dL (7-18)
[2016-11-20] MEDS: GuaiFENesin SR 600 MG ER TABLET PO SCH ×2 (08:27→20:55)
[2016-11-20] MEDS: SPIRONOLACTONE 25 MG TABLET PO SCH (08:27)
[2016-11-20] MEDS: FLUTICASONE/VILANTEROL 200-25 MCG/INH INHALER [14] IH SCH (08:27)
[2016-11-20] MEDS: DRONABINOL 2.5 MG CAPSULE PO SCH ×2 (08:27→20:54)
[2016-11-20] MEDS: CALCIUM OYSTER SHELL 250 MG-VIT D3 125 UNITS TABLET PO SCH (08:28)
[2016-11-20] MEDS: MEMANTINE HCL 10 MG TABLET PO SCH ×2 (08:28→20:54)
[2016-11-20] MEDS: [UNRECOGNIZED DRUG - OTHER] TP SCH (08:29)
[2016-11-20 09:10] LABS: THYROID STIMULATING HORMONE 0.53 uIU/mL (0.36-3.74); TOTAL PROTEIN, SERUM 9.2 g/dL (6.4-8.2)
[2016-11-20 12:52] LABS: APPEARANCE,UNSPUN,BODY FLUID BLOODY (CLEAR); COLOR,BODY FLUID RED (LT YELLOW)
[2016-11-20 12:54] LABS: OTHER CELLS,BODY FLUID MESOTHELIALS
[2016-11-20 12:57] LABS: GLUCOSE,POINT OF CARE 86 MG/DL (70-110)
[2016-11-20] MEDS: DONEPEZIL HCL 10 MG TABLET PO SCH (20:54)
[2016-11-20] MEDS: LOSARTAN POTASSIUM 50 MG TABLET PO SCH (20:54)
[2016-11-20] MEDS: ATORVASTATIN CALCIUM 10 MG TABLET PO SCH (20:54)
[2016-11-20] MEDS: METOPROLOL SUCCINATE 25 MG ER TABLET PO SCH (20:54)
[2016-11-20] MEDS: MIRTAZAPINE 15 MG TABLET PO SCH (20:54)
[2016-11-21] MEDS: LEVALBUTEROL HCL 1.25 MG/0.5 ML NEB SOLUTION NEB SCH ×3 (00:11→15:58)
[2016-11-21] MEDS: IPRATROPIUM BROMIDE 0.5 MG/2.5 ML NEB SOLUTION NEB SCH ×3 (00:11→15:58)
[2016-11-21] MEDS: CefTRIAXone 1 GM/DEXTROSE 50 ML IV SCH ×2 (00:25→17:56)
[2016-11-21 04:41] VITALS: BP 156/80
[2016-11-21] MEDS: LEVOTHYROXINE SODIUM 88 MCG TABLET PO SCH (06:01)
[2016-11-21] MEDS: PANTOPRAZOLE SODIUM 40 MG DR TABLET PO SCH (06:01)
[2016-11-21 07:35] LABS: ALANINE AMINOTRANSFERASE 41 U/L (12-78); ALBUMIN 2.1 g/dL (3.4-5.0); ANION GAP 11 mmol/L (8-16); ASPARTATE AMINOTRANSFERASE 37 U/L (15-37); BILIRUBIN,TOTAL 0.8 mg/dL (0.1-1.0); CALCIUM, TOTAL 8.9 mg/dL (8.8-10.5); CARBON DIOXIDE 22 mmol/L (22-29); CHLORIDE 104 mmol/L (98-107); CREATININE 0.74 mg/dL (0.60-1.30); GLOMERULAR FILTR. RATE CALC > 60 mL/min (>60); SODIUM SERUM 137 mmol/L (136-145); TOTAL PROTEIN, SERUM 8.3 g/dL (6.4-8.2); UREA NITROGEN, BLOOD 17 mg/dL (7-18)
[2016-11-21 07:47] VITALS: BP 132/80
[2016-11-21] MEDS: SPIRONOLACTONE 25 MG TABLET PO SCH (08:28)
[2016-11-21] MEDS: DRONABINOL 2.5 MG CAPSULE PO SCH (08:28)
[2016-11-21] MEDS: FLUTICASONE/VILANTEROL 200-25 MCG/INH INHALER [14] IH SCH (08:28)
[2016-11-21] MEDS: MEMANTINE HCL 10 MG TABLET PO SCH (08:28)
[2016-11-21] MEDS: GuaiFENesin SR 600 MG ER TABLET PO SCH (08:28)
[2016-11-21] MEDS: CALCIUM OYSTER SHELL 250 MG-VIT D3 125 UNITS TABLET PO SCH (08:29)
[2016-11-21] MEDS: [UNRECOGNIZED DRUG - OTHER] TP SCH (08:29)
[2016-11-21] MEDS ORDERED: MULTIVITAMINS, THERAPEUTIC TABLET PO SCH (09:00)
[2016-11-21] MEDS ORDERED: CALC-261 PO (10:37)
[2016-11-21] MEDS ORDERED: FLUT1BLS PO (10:48)
[2016-11-21] MEDS ORDERED: IPRNEB IH ×2 (10:48→10:50)
[2016-11-21] MEDS ORDERED: GUAI600T53 PO (10:48)
[2016-11-21] MEDS ORDERED: LEVA1.2514 NEB (10:50)
[2016-11-21] MEDS ORDERED: LOSA50TA37 PO (10:51)
[2016-11-21] MEDS ORDERED: MIRT15 PO (10:54)
[2016-11-21] MEDS ORDERED: MV-M1TAB2 PO (10:58)
[2016-11-21] MEDS ORDERED: ACET-2247 PO (10:59)
[2016-11-21] MEDS ORDERED: BISA10S PR (11:01)
[2016-11-21] MEDS ORDERED: CLON.1 PO (11:03)
[2016-11-21 11:05] VITALS: BP 104/57
[2016-11-21] MEDS ORDERED: ONDA4 IV (11:09)
[2016-11-21] MEDS ORDERED: ZOLP5 PO (11:10)
[2016-11-21 15:23] VITALS: BP 117/66
[2016-11-21 16:02] LABS: TOTAL PROTEIN,BODY FLUID,REF 4.8 g/dL
[2016-11-21 19:28] VITALS: BP 155/76
[2016-11-21] MEDS ORDERED: MIRTAZAPINE 15 MG TABLET PO SCH (21:00)
[2016-11-22] MEDS ORDERED: METHYL SALICYLATE/MENTH/CAMPH TOPICAL PATCH TP SCH (09:00)
== END 2016-11-21 21:25 | DRG 871 ==
LOC: EMS 14:55 → 5S 21:13
PROVIDERS: ADMIT Internal Medicine; ATTEND Internal Medicine
PROC: 0W9B3ZZ Drainage of Left Pleural Cavity, Percutaneous Approach (ICD-10-PCS; principal; 2016-11-20)
DX: A41.9 Sepsis, unspecified organism (principal); J18.9 Pneumonia, unspecified organism; I50.31 Acute diastolic (congestive) heart failure; E46 Unspecified protein-calorie malnutrition; J44.0 Chronic obstructive pulmonary disease with (acute) lower respiratory infection; J98.11 Atelectasis; R18.8 Other ascites; J90 Pleural effusion, not elsewhere classified; Z68.1 Body mass index [BMI] 19.9 or less, adult; B18.2 Chronic viral hepatitis C; D50.9 Iron deficiency anemia, unspecified; E03.9 Hypothyroidism, unspecified; I11.0 Hypertensive heart disease with heart failure; F03.90 Unspecified dementia, unspecified severity, without behavioral disturbance, psychotic disturbance, mood disturbance, and anxiety; E78.5 Hyperlipidemia, unspecified; I70.0 Atherosclerosis of aorta; J44.9 Chronic obstructive pulmonary disease, unspecified; K21.9 Gastro-esophageal reflux disease without esophagitis; K74.60 Unspecified cirrhosis of liver; F41.9 Anxiety disorder, unspecified; J11.1 Influenza due to unidentified influenza virus with other respiratory manifestations; Z79.899 Other long term (current) drug therapy
CPT/HCPCS: 32555; 71260; 76942; 82465; 82945; 82962; 83605; 83615; 83986; 84145; 84155; 84157; 84443; 87015; 87040; 87070; 87101; 87205; 88108; 89051; 93005; 94640; 94667; 94668; 96365; 96366; 96368; 97110; 97162; 97165; 97535; 99291; G0238; J0131; J0456; J0696; J2405; J3490; J7030; J7050; Q0167

== ENCOUNTER 2016-11-23 20:25 | Inpatient (IN) | payer MEDICARE, MEDICAID ==
[~2016-11-23] VITALS: Ht 149.9 cm; Wt 32.4 kg
[~2016-11-23 20:25] MED LIST changes: -ALBU8HFA4 IH; +BISA10S PR; +CALC-261 PO; -CALC-776 PO; +CLON.1 PO; +GUAI600T53 PO; +IPRNEB IH; -LACT-90 PO; +LEVA1.2514 NEB; +LOSA50TA37 PO; +MIRT15 PO; +ONDA4 IV; +ZOLP5 PO
[2016-11-23 21:05] LABS: BASOPHILS % (AUTO) 0.1 % (0.0-2.0); EOSINOPHILS # (AUTO) 0.15 K/uL (0.00-0.70); EOSINOPHILS % (AUTO) 2.26 % (1.0-6.0); HEMATOCRIT 32.7 % (36-46); HEMOGLOBIN 10.9 g/dL (12.0-16.0); LYMPHOCYTES # (AUTO) 1.4 K/uL (1.0-4.8); LYMPHOCYTES % (AUTO) 20.6 % (22.0-44.0); MEAN CORPUSCULAR HEMOGLOBIN 33.3 pg (26.0-34.0); MEAN CORPUSCULAR HGB CONC 33.1 G/dL (31.0-37.0); MEAN CORPUSCULAR VOLUME 101 fL (80-100); MONOCYTES # (AUTO) 0.3 K/uL (0.1-1.0); MONOCYTES % (AUTO) 4.6 % (2.0-9.0); NEUTROPHILS % (AUTO) 72.5 % (40.0-70.0); PLATELET COUNT (AUTO) 179 K/uL (150-450); RED BLOOD CELL COUNT(AUTO) 3.26 MIL/uL (4.00-5.20); RED CELL DISTRIBUTION WIDTH 17.3 % (11.5-14.5); WHITE BLOOD COUNT (AUTO) 6.9 K/uL (4.5-11.0)
[2016-11-23 21:12] LABS: ANION GAP 11 mmol/L (8-16); CARBON DIOXIDE 20 mmol/L (22-29); CHLORIDE 105 mmol/L (98-107); CREATININE 0.85 mg/dL (0.60-1.30); GLOMERULAR FILTR. RATE CALC > 60 mL/min (>60); POTASSIUM 3.7 mmol/L (3.5-5.1); SODIUM SERUM 136 mmol/L (136-145); UREA NITROGEN, BLOOD 20 mg/dL (7-18)
[2016-11-23 21:19] LABS: INR 1.1 (0.9-1.1); PROTHROMBIN TIME 12.1 SEC (9.4-11.6)
[2016-11-23 21:20] LABS: LACTIC ACID 0.5 mmol/L (0.4-2.0)
[2016-11-23 21:27] LABS: ALANINE AMINOTRANSFERASE 34 U/L (12-78); ASPARTATE AMINOTRANSFERASE 44 U/L (15-37); BILIRUBIN,TOTAL 0.5 mg/dL (0.1-1.0); CREATINE KINASE, TOTAL 10 U/L (26-192); TOTAL PROTEIN, SERUM 7.8 g/dL (6.4-8.2)
[2016-11-23 21:31] LABS: B-TYPE NATRIURETIC PEPTIDE 125 pg/mL (0-100)
[2016-11-23] MEDS ORDERED: SODIUM CHLORIDE 0.9% 500 ML IV ONE (22:30)
[2016-11-23] MEDS ORDERED: IBUPROFEN 100 MG/5 ML SUSPENSION UDCUP PO ONE (22:30)
[2016-11-23] MEDS ORDERED: SODIUM CHLORIDE 0.9% 1,000 ML IV ONE (22:30)
[2016-11-23] MEDS ORDERED: SODIUM CHLORIDE 0.9% 100 ML ONE (23:09)
[2016-11-23] MEDS ORDERED: IOVERSOL 350 MG/ML 100 ML VIAL ONE (23:10)
[2016-11-23] MEDS ORDERED: CefTRIAXone 1 GM/DEXTROSE 50 ML IV ONE (23:15)
[2016-11-23 23:37] LABS: APPEARANCE,URINE CLEAR (CLEAR); GLUCOSE, URINE (UA) NEGATIVE (NEGATIVE); KETONES,URINE NEGATIVE (NEGATIVE); PH,URINE 6.5 (5.0-8.0); PROTEIN,URINE POS 1+ (NEGATIVE)
[2016-11-23 23:39] LABS: ADD UA MICROSCOPIC YES; LEUKOCYTE ESTERASE ,URINE SMALL (NEGATIVE); OCCULT BLOOD,URINE SMALL (NEGATIVE); SQUAMOUS EPITHELIAL CELL,UR Few /LPF (None Seen)
[2016-11-23 23:40] LABS: AMORPHOUS SEDIMENT,UR Few /LPF (None Seen)
[2016-11-23] MEDS ORDERED: ACETAMINOPHEN 325 MG TABLET PO PRN (23:45)
[2016-11-23] MEDS ORDERED: ONDANSETRON HCL 4 MG/2 ML VIAL IVP PRN (23:45)
[2016-11-23] MEDS ORDERED: 0.9% SODIUM CHLORIDE 10 ML SYRINGE IVP PRN (23:45)
[2016-11-24 01:12] VITALS: BP 111/68
[2016-11-24] MEDS ORDERED: ACETAMINOPHEN 325 MG TABLET PO PRN (03:30)
[2016-11-24] MEDS ORDERED: IPRATROPIUM BROMIDE 0.5 MG/2.5 ML NEB SOLUTION NEB PRN (03:30)
[2016-11-24] MEDS ORDERED: BISACODYL 10 MG RECTAL RECTAL SUPPOSITORY PR PRN (03:30)
[2016-11-24] MEDS ORDERED: CloNIDine HCL 0.1 MG TABLET PO PRN (03:30)
[2016-11-24 06:07] VITALS: BP 139/79
[2016-11-24] MEDS ORDERED: PANTOPRAZOLE SODIUM 40 MG DR TABLET PO SCH (06:30)
[2016-11-24] MEDS: LEVOTHYROXINE SODIUM 88 MCG TABLET PO SCH (06:30)
[2016-11-24 07:21] VITALS: BP 124/75
[2016-11-24] MEDS ORDERED: ONDANSETRON HCL 4 MG/2 ML VIAL IVP PRN (08:15)
[2016-11-24] MEDS ORDERED: 0.9% SODIUM CHLORIDE 10 ML SYRINGE IVP PRN ×2 (08:15)
[2016-11-24] MEDS ORDERED: MORPHINE SULFATE 2 MG/ML SYRINGE IVP PRN (08:15)
[2016-11-24 08:17] LABS: ALANINE AMINOTRANSFERASE 29 U/L (12-78); ALBUMIN 1.9 g/dL (3.4-5.0); ANION GAP 11 mmol/L (8-16); ASPARTATE AMINOTRANSFERASE 39 U/L (15-37); BILIRUBIN,TOTAL 0.6 mg/dL (0.1-1.0); CALCIUM, TOTAL 8.2 mg/dL (8.8-10.5); CARBON DIOXIDE 18 mmol/L (22-29); CHLORIDE 108 mmol/L (98-107); CREATININE 0.65 mg/dL (0.60-1.30); GLOMERULAR FILTR. RATE CALC > 60 mL/min (>60); POTASSIUM 3.5 mmol/L (3.5-5.1); SODIUM SERUM 137 mmol/L (136-145); TOTAL PROTEIN, SERUM 7.8 g/dL (6.4-8.2); UREA NITROGEN, BLOOD 18 mg/dL (7-18)
[2016-11-24 08:19] LABS: BASOPHILS # (AUTO) 0.03 K/uL (0.00-0.20); BASOPHILS % (AUTO) 0.6 % (0.0-2.0); EOSINOPHILS % (AUTO) 1.87 % (1.0-6.0); HEMATOCRIT 34.3 % (36-46); HEMOGLOBIN 10.8 g/dL (12.0-16.0); LYMPHOCYTES # (AUTO) 1.2 K/uL (1.0-4.8); LYMPHOCYTES % (AUTO) 21.7 % (22.0-44.0); MEAN CORPUSCULAR HEMOGLOBIN 31.4 pg (26.0-34.0); MEAN CORPUSCULAR HGB CONC 31.5 G/dL (31.0-37.0); MEAN CORPUSCULAR VOLUME 100 fL (80-100); MONOCYTES # (AUTO) 0.4 K/uL (0.1-1.0); MONOCYTES % (AUTO) 7.2 % (2.0-9.0); NEUTROPHILS # (AUTO) 3.7 K/uL (1.8-7.7); NEUTROPHILS % (AUTO) 68.7 % (40.0-70.0); PLATELET COUNT (AUTO) 168 K/uL (150-450); RED BLOOD CELL COUNT(AUTO) 3.44 MIL/uL (4.00-5.20); RED CELL DISTRIBUTION WIDTH 16.9 % (11.5-14.5); WHITE BLOOD COUNT (AUTO) 5.4 K/uL (4.5-11.0)
[2016-11-24] MEDS ORDERED: TIGECYCLINE 100 MG in SODIUM CHLORIDE 0.9% 100 ML IV ONE (08:30)
[2016-11-24] MEDS ORDERED: FLUTICASONE/VILANTEROL 200-25 MCG/INH INHALER [14] IH SCH (09:00)
[2016-11-24] MEDS: PIPERACILLIN SODIUM/TAZOBACTAM 2.25 GM in DEXTROSE 5%-WATER 50 ML IV SCH ×3 (09:00→20:12)
[2016-11-24] MEDS ORDERED: PANTOPRAZOLE SODIUM 40 MG/VIAL IVP SCH (09:00)
[2016-11-24] MEDS ORDERED: PIPERACILLIN/TAZO 3.375 GM/D5W 50 ML IV SCH (09:00)
[2016-11-24] MEDS: MULTIVITAMINS WITH MINERALS, THERAPEUTIC TABLET PO SCH (09:09)
[2016-11-24] MEDS: SPIRONOLACTONE 25 MG TABLET PO SCH (09:10)
[2016-11-24] MEDS: GuaiFENesin SR 600 MG ER TABLET PO SCH ×2 (09:10→20:16)
[2016-11-24] MEDS: ASPIRIN 81 MG EC TABLET PO SCH (09:10)
[2016-11-24] MEDS: DRONABINOL 2.5 MG CAPSULE PO SCH ×2 (09:10→20:16)
[2016-11-24] MEDS: LOSARTAN POTASSIUM 50 MG TABLET PO SCH (09:10)
[2016-11-24] MEDS: MEMANTINE HCL 10 MG TABLET PO SCH ×2 (09:11→20:16)
[2016-11-24] MEDS: HEPARIN SODIUM,PORCINE 5,000 UNITS/ML VIAL SQ SCH ×2 (09:11→20:16)
[2016-11-24] MEDS: PANTOPRAZOLE SODIUM 40 MG DR TABLET PO SCH (09:12)
[2016-11-24] MEDS: IPRATROPIUM BROMIDE 0.5 MG/2.5 ML NEB SOLUTION NEB SCH ×2 (09:38→16:16)
[2016-11-24 10:55] VITALS: BP 118/50
[2016-11-24 15:20] VITALS: BP 145/77
[2016-11-24] MEDS ORDERED: SODIUM CHLORIDE 0.9% 100 ML ONE (15:48)
[2016-11-24 20:16] VITALS: BP 147/75
[2016-11-24] MEDS: DONEPEZIL HCL 10 MG TABLET PO SCH (20:16)
[2016-11-24] MEDS: ATORVASTATIN CALCIUM 20 MG TABLET PO SCH (20:16)
[2016-11-24] MEDS: METOPROLOL SUCCINATE 25 MG ER TABLET PO SCH (20:17)
[2016-11-24] MEDS: MIRTAZAPINE 15 MG TABLET PO SCH (20:17)
[2016-11-24] MEDS: CALCIUM OYSTER SHELL 250 MG-VIT D3 125 UNITS TABLET PO SCH (20:17)
[2016-11-24] MEDS ORDERED: MIRTAZAPINE 15 MG TABLET PO SCH (21:00)
[2016-11-24] MEDS ORDERED: ATORVASTATIN CALCIUM 10 MG TABLET PO SCH (21:00)
[2016-11-24] MEDS ORDERED: CefTRIAXone 1 GM/DEXTROSE 50 ML IV SCH (23:00)
[2016-11-25 00:23] VITALS: BP 131/75
[2016-11-25] MEDS: PIPERACILLIN SODIUM/TAZOBACTAM 2.25 GM in DEXTROSE 5%-WATER 50 ML IV SCH (03:15)
[2016-11-25 04:26] VITALS: BP 114/75
[2016-11-25] MEDS: PANTOPRAZOLE SODIUM 40 MG DR TABLET PO SCH (06:14)
[2016-11-25] MEDS: LEVOTHYROXINE SODIUM 88 MCG TABLET PO SCH (06:21)
[2016-11-25 06:50] LABS: BASOPHILS % (AUTO) 0.4 % (0.0-2.0); EOSINOPHILS % (AUTO) 3.6 % (1.0-6.0); HEMATOCRIT 30.2 % (36-46); LYMPHOCYTES # (AUTO) 1.4 K/uL (1.0-4.8); LYMPHOCYTES % (AUTO) 26.2 % (22.0-44.0); MEAN CORPUSCULAR HEMOGLOBIN 34.1 pg (26.0-34.0); MEAN CORPUSCULAR HGB CONC 33.1 G/dL (31.0-37.0); MEAN CORPUSCULAR VOLUME 103 fL (80-100); MONOCYTES # (AUTO) 0.6 K/uL (0.1-1.0); NEUTROPHILS # (AUTO) 3.1 K/uL (1.8-7.7); NEUTROPHILS % (AUTO) 57.8 % (40.0-70.0); PLATELET COUNT (AUTO) 156 K/uL (150-450); RED BLOOD CELL COUNT(AUTO) 2.93 MIL/uL (4.00-5.20); RED CELL DISTRIBUTION WIDTH 17.7 % (11.5-14.5); WHITE BLOOD COUNT (AUTO) 5.4 K/uL (4.5-11.0)
[2016-11-25] MEDS: HEPARIN SODIUM,PORCINE 5,000 UNITS/ML VIAL SQ SCH ×2 (08:45→20:29)
[2016-11-25] MEDS: GuaiFENesin SR 600 MG ER TABLET PO SCH ×2 (08:46→20:30)
[2016-11-25] MEDS: SPIRONOLACTONE 25 MG TABLET PO SCH (08:46)
[2016-11-25] MEDS: DRONABINOL 2.5 MG CAPSULE PO SCH ×2 (08:46→20:29)
[2016-11-25] MEDS: ASPIRIN 81 MG EC TABLET PO SCH (08:46)
[2016-11-25] MEDS: METOPROLOL TARTRATE 25 MG TABLET PO SCH (08:46)
[2016-11-25] MEDS: MEMANTINE HCL 10 MG TABLET PO SCH ×2 (08:46→20:30)
[2016-11-25] MEDS: MULTIVITAMINS WITH MINERALS, THERAPEUTIC TABLET PO SCH (08:46)
[2016-11-25] MEDS: LOSARTAN POTASSIUM 50 MG TABLET PO SCH (09:00)
[2016-11-25 09:10] VITALS: BP 108/71
[2016-11-25] MEDS: IPRATROPIUM BROMIDE 0.5 MG/2.5 ML NEB SOLUTION NEB SCH ×3 (09:26→16:30)
[2016-11-25 09:51] LABS: RBC MORPHOLOGY COMMENT ABNORMAL RBC MORPH
[2016-11-25] MEDS: ACETAMINOPHEN 325 MG TABLET PO PRN (10:09)
[2016-11-25 11:27] VITALS: BP 96/52
[2016-11-25 15:27] VITALS: BP 129/58
[2016-11-25 19:56] VITALS: BP 141/78
[2016-11-25] MEDS: DONEPEZIL HCL 10 MG TABLET PO SCH (20:29)
[2016-11-25] MEDS: METOPROLOL SUCCINATE 25 MG ER TABLET PO SCH (20:29)
[2016-11-25] MEDS: ATORVASTATIN CALCIUM 20 MG TABLET PO SCH (20:29)
[2016-11-25] MEDS: MIRTAZAPINE 15 MG TABLET PO SCH (20:29)
[2016-11-25] MEDS: CALCIUM OYSTER SHELL 250 MG-VIT D3 125 UNITS TABLET PO SCH (20:29)
[2016-11-25] MEDS: ZOLPIDEM TARTRATE 5 MG TABLET PO PRN (20:30)
[2016-11-25] MEDS: HYDROCODONE/ACETAMINOPHEN 5-325 MG TABLET PO PRN (20:30)
[2016-11-26] VITALS (8 sets, daily range): BP systolic 120–178; BP diastolic 68–99
[2016-11-26] MEDS: LEVOTHYROXINE SODIUM 88 MCG TABLET PO SCH (05:44)
[2016-11-26 07:04] LABS: ALANINE AMINOTRANSFERASE 33 U/L (12-78); ALBUMIN 1.7 g/dL (3.4-5.0); ANION GAP 10 mmol/L (8-16); ASPARTATE AMINOTRANSFERASE 51 U/L (15-37); BILIRUBIN,TOTAL 0.4 mg/dL (0.1-1.0); CARBON DIOXIDE 19 mmol/L (22-29); CHLORIDE 109 mmol/L (98-107); CREATININE 0.76 mg/dL (0.60-1.30); GLOMERULAR FILTR. RATE CALC > 60 mL/min (>60); POTASSIUM 3.7 mmol/L (3.5-5.1); SODIUM SERUM 138 mmol/L (136-145); TOTAL PROTEIN, SERUM 7.3 g/dL (6.4-8.2); UREA NITROGEN, BLOOD 15 mg/dL (7-18)
[2016-11-26] MEDS: IPRATROPIUM BROMIDE 0.5 MG/2.5 ML NEB SOLUTION NEB SCH ×4 (08:02→23:25)
[2016-11-26] MEDS: SPIRONOLACTONE 25 MG TABLET PO SCH (09:12)
[2016-11-26] MEDS: MEMANTINE HCL 10 MG TABLET PO SCH ×2 (09:12→20:52)
[2016-11-26] MEDS: MULTIVITAMINS WITH MINERALS, THERAPEUTIC TABLET PO SCH (09:12)
[2016-11-26] MEDS: PANTOPRAZOLE SODIUM 40 MG DR TABLET PO SCH (09:13)
[2016-11-26] MEDS: ASPIRIN 81 MG EC TABLET PO SCH (09:13)
[2016-11-26] MEDS: GuaiFENesin SR 600 MG ER TABLET PO SCH ×2 (09:13→20:52)
[2016-11-26] MEDS: DRONABINOL 2.5 MG CAPSULE PO SCH ×2 (09:13→20:52)
[2016-11-26] MEDS: HEPARIN SODIUM,PORCINE 5,000 UNITS/ML VIAL SQ SCH ×2 (09:13→20:52)
[2016-11-26] MEDS: METOPROLOL TARTRATE 25 MG TABLET PO SCH (09:14)
[2016-11-26] MEDS: LOSARTAN POTASSIUM 50 MG TABLET PO SCH (09:15)
[2016-11-26] MEDS ORDERED: ASPI-1093 PO (13:30)
[2016-11-26] MEDS ORDERED: HEPA500035 SQ (13:33)
[2016-11-26] MEDS ORDERED: HYDR-3965 PO (13:40)
[2016-11-26] MEDS: CALCIUM OYSTER SHELL 250 MG-VIT D3 125 UNITS TABLET PO SCH (20:52)
[2016-11-26] MEDS: ATORVASTATIN CALCIUM 20 MG TABLET PO SCH (20:52)
[2016-11-26] MEDS: METOPROLOL SUCCINATE 25 MG ER TABLET PO SCH (20:52)
[2016-11-26] MEDS: DONEPEZIL HCL 10 MG TABLET PO SCH (20:52)
[2016-11-26] MEDS: MIRTAZAPINE 15 MG TABLET PO SCH (20:52)
[2016-11-26] MEDS: ALBUTEROL SULFATE 2.5 MG/0.5 ML NEB SOLUTION NEB PRN (23:25)
[2016-11-27 04:04] VITALS: BP 144/87
[2016-11-27] MEDS: LEVOTHYROXINE SODIUM 88 MCG TABLET PO SCH (05:43)
[2016-11-27] MEDS: IPRATROPIUM BROMIDE 0.5 MG/2.5 ML NEB SOLUTION NEB SCH ×3 (07:00→23:50)
[2016-11-27 07:18] VITALS: BP 148/69
[2016-11-27 07:40] LABS: ALANINE AMINOTRANSFERASE 32 U/L (12-78); ALBUMIN 1.8 g/dL (3.4-5.0); ANION GAP 12 mmol/L (8-16); ASPARTATE AMINOTRANSFERASE 48 U/L (15-37); BILIRUBIN,TOTAL 0.3 mg/dL (0.1-1.0); CALCIUM, TOTAL 7.9 mg/dL (8.8-10.5); CARBON DIOXIDE 19 mmol/L (22-29); CHLORIDE 110 mmol/L (98-107); CREATININE 0.64 mg/dL (0.60-1.30); GLOMERULAR FILTR. RATE CALC > 60 mL/min (>60); POTASSIUM 3.9 mmol/L (3.5-5.1); SODIUM SERUM 141 mmol/L (136-145); TOTAL PROTEIN, SERUM 7.2 g/dL (6.4-8.2); UREA NITROGEN, BLOOD 13 mg/dL (7-18)
[2016-11-27] MEDS: GuaiFENesin SR 600 MG ER TABLET PO SCH ×2 (08:41→20:34)
[2016-11-27] MEDS: LOSARTAN POTASSIUM 50 MG TABLET PO SCH (08:41)
[2016-11-27] MEDS: DRONABINOL 2.5 MG CAPSULE PO SCH ×2 (08:41→20:34)
[2016-11-27] MEDS: MULTIVITAMINS WITH MINERALS, THERAPEUTIC TABLET PO SCH (08:41)
[2016-11-27] MEDS: PANTOPRAZOLE SODIUM 40 MG DR TABLET PO SCH (08:42)
[2016-11-27] MEDS: ASPIRIN 81 MG EC TABLET PO SCH (08:43)
[2016-11-27] MEDS: HEPARIN SODIUM,PORCINE 5,000 UNITS/ML VIAL SQ SCH ×2 (08:43→20:34)
[2016-11-27] MEDS: METOPROLOL TARTRATE 25 MG TABLET PO SCH (08:44)
[2016-11-27] MEDS: SPIRONOLACTONE 25 MG TABLET PO SCH (08:44)
[2016-11-27] MEDS: MEMANTINE HCL 10 MG TABLET PO SCH ×2 (08:44→20:34)
[2016-11-27] MEDS: MetroNIDAZOLE 250 MG TABLET PO SCH ×3 (10:37→20:34)
[2016-11-27 11:14] VITALS: BP 149/75
[2016-11-27 16:04] VITALS: BP 162/96
[2016-11-27 16:21] VITALS: BP 153/98
[2016-11-27 19:33] VITALS: BP 149/89
[2016-11-27] MEDS: MIRTAZAPINE 15 MG TABLET PO SCH (20:34)
[2016-11-27] MEDS: CALCIUM OYSTER SHELL 250 MG-VIT D3 125 UNITS TABLET PO SCH (20:34)
[2016-11-27] MEDS: ATORVASTATIN CALCIUM 20 MG TABLET PO SCH (20:34)
[2016-11-27] MEDS: DONEPEZIL HCL 10 MG TABLET PO SCH (20:34)
[2016-11-27] MEDS: METOPROLOL SUCCINATE 25 MG ER TABLET PO SCH (20:36)
[2016-11-27] MEDS: ALBUTEROL SULFATE 2.5 MG/0.5 ML NEB SOLUTION NEB PRN (23:50)
[2016-11-28] VITALS: BP 150/93
[2016-11-28 04:51] VITALS: BP 148/87
[2016-11-28] MEDS: LEVOTHYROXINE SODIUM 88 MCG TABLET PO SCH (06:08)
[2016-11-28] MEDS: PANTOPRAZOLE SODIUM 40 MG DR TABLET PO SCH (06:08)
[2016-11-28 07:49] VITALS: BP 159/110
[2016-11-28 07:56] LABS: ALANINE AMINOTRANSFERASE 38 U/L (12-78); ANION GAP 12 mmol/L (8-16); ASPARTATE AMINOTRANSFERASE 57 U/L (15-37); BILIRUBIN,TOTAL 0.4 mg/dL (0.1-1.0); CALCIUM, TOTAL 8.2 mg/dL (8.8-10.5); CARBON DIOXIDE 19 mmol/L (22-29); CHLORIDE 109 mmol/L (98-107); CREATININE 0.58 mg/dL (0.60-1.30); GLOMERULAR FILTR. RATE CALC > 60 mL/min (>60); POTASSIUM 3.8 mmol/L (3.5-5.1); SODIUM SERUM 140 mmol/L (136-145); UREA NITROGEN, BLOOD 12 mg/dL (7-18)
[2016-11-28] MEDS: ALBUTEROL SULFATE 2.5 MG/0.5 ML NEB SOLUTION NEB PRN ×2 (08:57→23:42)
[2016-11-28] MEDS: IPRATROPIUM BROMIDE 0.5 MG/2.5 ML NEB SOLUTION NEB SCH ×3 (08:57→23:42)
[2016-11-28] MEDS: SPIRONOLACTONE 25 MG TABLET PO SCH (09:15)
[2016-11-28] MEDS: MetroNIDAZOLE 250 MG TABLET PO SCH ×3 (09:15→20:32)
[2016-11-28] MEDS: MULTIVITAMINS WITH MINERALS, THERAPEUTIC TABLET PO SCH (09:15)
[2016-11-28] MEDS: ASPIRIN 81 MG EC TABLET PO SCH (09:15)
[2016-11-28] MEDS: GuaiFENesin SR 600 MG ER TABLET PO SCH ×2 (09:15→20:32)
[2016-11-28] MEDS: METOPROLOL SUCCINATE 25 MG ER TABLET PO SCH ×2 (09:15→20:31)
[2016-11-28] MEDS: MEMANTINE HCL 10 MG TABLET PO SCH ×2 (09:15→20:31)
[2016-11-28] MEDS: DRONABINOL 2.5 MG CAPSULE PO SCH ×2 (09:15→20:32)
[2016-11-28] MEDS: HEPARIN SODIUM,PORCINE 5,000 UNITS/ML VIAL SQ SCH ×2 (09:16→20:24)
[2016-11-28] MEDS: LOSARTAN POTASSIUM 50 MG TABLET PO SCH (09:16)
[2016-11-28 11:43] VITALS: BP 152/94
[2016-11-28 15:55] VITALS: BP 153/91
[2016-11-28 20:06] VITALS: BP 149/92
[2016-11-28] MEDS: MIRTAZAPINE 15 MG TABLET PO SCH (20:31)
[2016-11-28] MEDS: ATORVASTATIN CALCIUM 20 MG TABLET PO SCH (20:32)
[2016-11-28] MEDS: DONEPEZIL HCL 10 MG TABLET PO SCH (20:32)
[2016-11-28] MEDS: CALCIUM OYSTER SHELL 250 MG-VIT D3 125 UNITS TABLET PO SCH (20:32)
[2016-11-28] MEDS: IPRATROPIUM BROMIDE 0.5 MG/2.5 ML NEB SOLUTION NEB PRN (23:52)
[2016-11-29 00:05] VITALS: BP 122/62
[2016-11-29 04:50] VITALS: BP 134/87
[2016-11-29] MEDS: LEVOTHYROXINE SODIUM 88 MCG TABLET PO SCH (06:40)
[2016-11-29] MEDS: PANTOPRAZOLE SODIUM 40 MG DR TABLET PO SCH (06:40)
[2016-11-29] MEDS: IPRATROPIUM BROMIDE 0.5 MG/2.5 ML NEB SOLUTION NEB SCH ×2 (07:50→16:00)
[2016-11-29] MEDS: SPIRONOLACTONE 25 MG TABLET PO SCH (08:19)
[2016-11-29] MEDS: LOSARTAN POTASSIUM 50 MG TABLET PO SCH (08:20)
[2016-11-29] MEDS: ASPIRIN 81 MG EC TABLET PO SCH (08:20)
[2016-11-29] MEDS: HEPARIN SODIUM,PORCINE 5,000 UNITS/ML VIAL SQ SCH ×2 (08:20→20:41)
[2016-11-29] MEDS: GuaiFENesin SR 600 MG ER TABLET PO SCH ×2 (08:21→20:42)
[2016-11-29] MEDS: MetroNIDAZOLE 250 MG TABLET PO SCH ×3 (08:21→20:43)
[2016-11-29] MEDS: MULTIVITAMINS WITH MINERALS, THERAPEUTIC TABLET PO SCH (08:22)
[2016-11-29] MEDS: METOPROLOL SUCCINATE 25 MG ER TABLET PO SCH ×2 (08:22→20:47)
[2016-11-29] MEDS: MEMANTINE HCL 10 MG TABLET PO SCH ×2 (08:22→20:42)
[2016-11-29 08:24] VITALS: BP 142/77
[2016-11-29] MEDS: DRONABINOL 2.5 MG CAPSULE PO SCH ×2 (08:26→20:43)
[2016-11-29 08:31] LABS: ALANINE AMINOTRANSFERASE 34 U/L (12-78); ALBUMIN 1.8 g/dL (3.4-5.0); ANION GAP 10 mmol/L (8-16); ASPARTATE AMINOTRANSFERASE 56 U/L (15-37); BILIRUBIN,TOTAL 0.3 mg/dL (0.1-1.0); CALCIUM, TOTAL 7.7 mg/dL (8.8-10.5); CARBON DIOXIDE 20 mmol/L (22-29); CHLORIDE 112 mmol/L (98-107); CREATININE 0.75 mg/dL (0.60-1.30); GLOMERULAR FILTR. RATE CALC > 60 mL/min (>60); POTASSIUM 4.2 mmol/L (3.5-5.1); SODIUM SERUM 142 mmol/L (136-145); TOTAL PROTEIN, SERUM 7.6 g/dL (6.4-8.2); UREA NITROGEN, BLOOD 16 mg/dL (7-18)
[2016-11-29 11:50] VITALS: BP 136/59
[2016-11-29 14:47] VITALS: BP 141/81
[2016-11-29 20:20] VITALS: BP 136/73
[2016-11-29] MEDS: MIRTAZAPINE 15 MG TABLET PO SCH (20:42)
[2016-11-29] MEDS: CALCIUM OYSTER SHELL 250 MG-VIT D3 125 UNITS TABLET PO SCH (20:42)
[2016-11-29] MEDS: ATORVASTATIN CALCIUM 20 MG TABLET PO SCH (20:43)
[2016-11-30 00:13] VITALS: BP 152/82
[2016-11-30] MEDS: DONEPEZIL HCL 10 MG TABLET PO SCH ×2 (00:15→20:55)
[2016-11-30] MEDS: IPRATROPIUM BROMIDE 0.5 MG/2.5 ML NEB SOLUTION NEB SCH ×3 (00:35→16:02)
[2016-11-30] MEDS: BACLOFEN 10 MG TABLET PO PRN ×2 (03:42→20:55)
[2016-11-30 04:40] VITALS: BP 144/91
[2016-11-30] MEDS: LEVOTHYROXINE SODIUM 88 MCG TABLET PO SCH (06:03)
[2016-11-30] MEDS: PANTOPRAZOLE SODIUM 40 MG DR TABLET PO SCH (06:03)
[2016-11-30] MEDS: SPIRONOLACTONE 25 MG TABLET PO SCH (07:56)
[2016-11-30] MEDS: HEPARIN SODIUM,PORCINE 5,000 UNITS/ML VIAL SQ SCH ×2 (07:56→20:54)
[2016-11-30] MEDS: LOSARTAN POTASSIUM 50 MG TABLET PO SCH (07:56)
[2016-11-30] MEDS: ASPIRIN 81 MG EC TABLET PO SCH (07:56)
[2016-11-30] MEDS: MetroNIDAZOLE 250 MG TABLET PO SCH ×3 (07:57→20:54)
[2016-11-30] MEDS: MULTIVITAMINS WITH MINERALS, THERAPEUTIC TABLET PO SCH (07:57)
[2016-11-30] MEDS: DRONABINOL 2.5 MG CAPSULE PO SCH ×2 (07:57→21:00)
[2016-11-30] MEDS: MEMANTINE HCL 10 MG TABLET PO SCH ×2 (07:57→20:55)
[2016-11-30] MEDS: METOPROLOL SUCCINATE 25 MG ER TABLET PO SCH ×2 (07:57→21:00)
[2016-11-30] MEDS: GuaiFENesin SR 600 MG ER TABLET PO SCH ×2 (07:57→20:56)
[2016-11-30 08:03] VITALS: BP 147/84
[2016-11-30 11:00] VITALS: BP 138/80
[2016-11-30 15:54] VITALS: BP 136/72
[2016-11-30 15:55] LABS: ALANINE AMINOTRANSFERASE 32 U/L (12-78); ALBUMIN 2.1 g/dL (3.4-5.0); ANION GAP 11 mmol/L (8-16); ASPARTATE AMINOTRANSFERASE 64 U/L (15-37); BILIRUBIN,TOTAL 0.4 mg/dL (0.1-1.0); CARBON DIOXIDE 18 mmol/L (22-29); CHLORIDE 107 mmol/L (98-107); CREATININE 0.66 mg/dL (0.60-1.30); GLOMERULAR FILTR. RATE CALC > 60 mL/min (>60); POTASSIUM 5.3 mmol/L (3.5-5.1); SODIUM SERUM 136 mmol/L (136-145); TOTAL PROTEIN, SERUM 8.8 g/dL (6.4-8.2); UREA NITROGEN, BLOOD 17 mg/dL (7-18)
[2016-11-30 20:15] VITALS: BP 103/62
[2016-11-30] MEDS: CALCIUM OYSTER SHELL 250 MG-VIT D3 125 UNITS TABLET PO SCH (20:54)
[2016-11-30] MEDS: MIRTAZAPINE 15 MG TABLET PO SCH (20:55)
[2016-11-30] MEDS: ATORVASTATIN CALCIUM 20 MG TABLET PO SCH (20:55)
[2016-12-01] VITALS (7 sets, daily range): BP systolic 116–152; BP diastolic 59–93
[2016-12-01] MEDS: LEVOTHYROXINE SODIUM 88 MCG TABLET PO SCH (05:38)
[2016-12-01] MEDS: PANTOPRAZOLE SODIUM 40 MG DR TABLET PO SCH (05:40)
[2016-12-01 07:08] LABS: ALANINE AMINOTRANSFERASE 31 U/L (12-78); ALBUMIN 2.1 g/dL (3.4-5.0); ANION GAP 14 mmol/L (8-16); ASPARTATE AMINOTRANSFERASE 48 U/L (15-37); BILIRUBIN,TOTAL 0.5 mg/dL (0.1-1.0); CARBON DIOXIDE 16 mmol/L (22-29); CHLORIDE 108 mmol/L (98-107); CREATININE 0.68 mg/dL (0.60-1.30); GLOMERULAR FILTR. RATE CALC > 60 mL/min (>60); POTASSIUM 3.5 mmol/L (3.5-5.1); SODIUM SERUM 138 mmol/L (136-145); TOTAL PROTEIN, SERUM 8.5 g/dL (6.4-8.2); UREA NITROGEN, BLOOD 20 mg/dL (7-18)
[2016-12-01] MEDS: DRONABINOL 2.5 MG CAPSULE PO SCH ×2 (07:51→20:25)
[2016-12-01] MEDS: METOPROLOL SUCCINATE 25 MG ER TABLET PO SCH ×2 (07:51→20:21)
[2016-12-01] MEDS: MetroNIDAZOLE 250 MG TABLET PO SCH ×3 (07:51→20:25)
[2016-12-01] MEDS: MEMANTINE HCL 10 MG TABLET PO SCH ×2 (07:51→20:21)
[2016-12-01] MEDS: MULTIVITAMINS WITH MINERALS, THERAPEUTIC TABLET PO SCH (07:52)
[2016-12-01] MEDS: LOSARTAN POTASSIUM 50 MG TABLET PO SCH (07:52)
[2016-12-01] MEDS: ASPIRIN 81 MG EC TABLET PO SCH (07:52)
[2016-12-01] MEDS: SPIRONOLACTONE 25 MG TABLET PO SCH (07:52)
[2016-12-01] MEDS: GuaiFENesin SR 600 MG ER TABLET PO SCH ×2 (07:52→20:25)
[2016-12-01] MEDS: IPRATROPIUM BROMIDE 0.5 MG/2.5 ML NEB SOLUTION NEB SCH ×3 (09:47→15:50)
[2016-12-01] MEDS: HEPARIN SODIUM,PORCINE 5,000 UNITS/ML VIAL SQ SCH ×2 (10:02→20:21)
[2016-12-01] MEDS: CALCIUM OYSTER SHELL 250 MG-VIT D3 125 UNITS TABLET PO SCH (20:21)
[2016-12-01] MEDS: ATORVASTATIN CALCIUM 20 MG TABLET PO SCH (20:21)
[2016-12-01] MEDS: DONEPEZIL HCL 10 MG TABLET PO SCH (20:22)
[2016-12-01] MEDS: MIRTAZAPINE 15 MG TABLET PO SCH (20:22)
[2016-12-01] MEDS: ACETAMINOPHEN 325 MG TABLET PO PRN (20:28)
[2016-12-01] MEDS ORDERED: *CLINICAL-RX DOSING [ENTER DRUG IN COMMENTS] CLINICAL ONE (20:30)
[2016-12-01] MEDS ORDERED: SODIUM CHLORIDE 0.9% 500 ML IV ONE (22:02)
[2016-12-01 22:04] LABS: BASOPHILS % (AUTO) 0.2 % (0.0-2.0); EOSINOPHILS % (AUTO) 0.2 % (1.0-6.0); LYMPHOCYTES # (AUTO) 1.4 K/uL (1.0-4.8); LYMPHOCYTES % (AUTO) 14.7 % (22.0-44.0); MEAN CORPUSCULAR HEMOGLOBIN 32.5 pg (26.0-34.0); MEAN CORPUSCULAR HGB CONC 32.3 G/dL (31.0-37.0); MEAN CORPUSCULAR VOLUME 101 fL (80-100); MONOCYTES # (AUTO) 0.6 K/uL (0.1-1.0); NEUTROPHILS # (AUTO) 7.3 K/uL (1.8-7.7); NEUTROPHILS % (AUTO) 78.9 % (40.0-70.0); PLATELET COUNT (AUTO) 258 K/uL (150-450); RED BLOOD CELL COUNT(AUTO) 3.68 MIL/uL (4.00-5.20); RED CELL DISTRIBUTION WIDTH 17.9 % (11.5-14.5); WHITE BLOOD COUNT (AUTO) 9.2 K/uL (4.5-11.0)
[2016-12-01] MEDS: CefoTEtan DISOD 1 GM/DEXTROSE 50 ML IV SCH (22:10)
[2016-12-02] MEDS: IPRATROPIUM BROMIDE 0.5 MG/2.5 ML NEB SOLUTION NEB SCH ×5 (00:29→23:28)
[2016-12-02 03:35] VITALS: BP 134/74
[2016-12-02 04:25] LABS: APPEARANCE,URINE TURBID (CLEAR); GLUCOSE, URINE (UA) NEGATIVE (NEGATIVE); KETONES,URINE NEGATIVE (NEGATIVE); LEUKOCYTE ESTERASE ,URINE LARGE (NEGATIVE); OCCULT BLOOD,URINE LARGE (NEGATIVE); PROTEIN,URINE SEE CONFIRM (NEGATIVE)
[2016-12-02 05:08] LABS: SULFOSALICYLIC ACID,URINE 1+ (Negative)
[2016-12-02 05:09] LABS: SQUAMOUS EPITHELIAL CELL,UR Few /LPF (None Seen); WBC,URINE 26-50 /HPF (0-5)
[2016-12-02] MEDS: LEVOTHYROXINE SODIUM 88 MCG TABLET PO SCH (06:25)
[2016-12-02] MEDS: PANTOPRAZOLE SODIUM 40 MG DR TABLET PO SCH (06:25)
[2016-12-02] MEDS: MEMANTINE HCL 10 MG TABLET PO SCH ×2 (07:54→21:24)
[2016-12-02] MEDS: ASPIRIN 81 MG EC TABLET PO SCH (07:54)
[2016-12-02] MEDS: MULTIVITAMINS WITH MINERALS, THERAPEUTIC TABLET PO SCH (07:55)
[2016-12-02] MEDS: SPIRONOLACTONE 25 MG TABLET PO SCH (07:55)
[2016-12-02] MEDS: METOPROLOL SUCCINATE 25 MG ER TABLET PO SCH ×2 (07:55→21:24)
[2016-12-02] MEDS: MetroNIDAZOLE 250 MG TABLET PO SCH ×3 (07:55→21:23)
[2016-12-02] MEDS: LOSARTAN POTASSIUM 50 MG TABLET PO SCH (07:56)
[2016-12-02] MEDS: DRONABINOL 2.5 MG CAPSULE PO SCH ×2 (07:57→21:23)
[2016-12-02] MEDS: HEPARIN SODIUM,PORCINE 5,000 UNITS/ML VIAL SQ SCH ×2 (07:57→21:22)
[2016-12-02] MEDS: GuaiFENesin SR 600 MG ER TABLET PO SCH ×2 (08:06→21:23)
[2016-12-02 08:14] VITALS: BP 137/74
[2016-12-02] MEDS: ALBUTEROL SULFATE 2.5 MG/0.5 ML NEB SOLUTION NEB SCH ×4 (09:32→21:45)
[2016-12-02 11:30] VITALS: BP 106/65
[2016-12-02] MEDS ORDERED: 0.9% SODIUM CHLORIDE 5 ML NEB SOLUTION NEB ONE ×2 (12:05→19:59)
[2016-12-02] MEDS ORDERED: SODIUM CHLORIDE 0.9% 100 ML ONE (16:31)
[2016-12-02] MEDS ORDERED: IOVERSOL 350 MG/ML 100 ML VIAL ONE (16:32)
[2016-12-02 16:35] VITALS: BP 136/77
[2016-12-02 20:18] VITALS: BP 131/72
[2016-12-02] MEDS: CefoTEtan DISOD 1 GM/DEXTROSE 50 ML IV SCH (21:22)
[2016-12-02] MEDS: MIRTAZAPINE 15 MG TABLET PO SCH (21:23)
[2016-12-02] MEDS: DONEPEZIL HCL 10 MG TABLET PO SCH (21:24)
[2016-12-02] MEDS: ATORVASTATIN CALCIUM 20 MG TABLET PO SCH (21:24)
[2016-12-02] MEDS: CALCIUM OYSTER SHELL 250 MG-VIT D3 125 UNITS TABLET PO SCH (21:24)
[2016-12-02 23:14] VITALS: BP 101/68
[2016-12-03] MEDS: HYDROCODONE/ACETAMINOPHEN 5-325 MG TABLET PO PRN ×2 (01:04→22:07)
[2016-12-03 03:31] VITALS: BP 99/66
[2016-12-03] MEDS: PANTOPRAZOLE SODIUM 40 MG DR TABLET PO SCH (06:45)
[2016-12-03] MEDS: LEVOTHYROXINE SODIUM 88 MCG TABLET PO SCH (06:45)
[2016-12-03 07:00] VITALS: BP 94/58
[2016-12-03] MEDS: ALBUTEROL SULFATE 2.5 MG/0.5 ML NEB SOLUTION NEB SCH ×4 (08:18→20:18)
[2016-12-03] MEDS: IPRATROPIUM BROMIDE 0.5 MG/2.5 ML NEB SOLUTION NEB SCH ×3 (08:18→23:33)
[2016-12-03] MEDS: MULTIVITAMINS WITH MINERALS, THERAPEUTIC TABLET PO SCH (08:50)
[2016-12-03] MEDS: DRONABINOL 2.5 MG CAPSULE PO SCH ×2 (08:50→21:56)
[2016-12-03] MEDS: HEPARIN SODIUM,PORCINE 5,000 UNITS/ML VIAL SQ SCH ×2 (08:50→21:55)
[2016-12-03] MEDS: MetroNIDAZOLE 250 MG TABLET PO SCH ×3 (08:50→21:56)
[2016-12-03] MEDS: MEMANTINE HCL 10 MG TABLET PO SCH ×2 (08:50→21:56)
[2016-12-03] MEDS: LOSARTAN POTASSIUM 50 MG TABLET PO SCH (08:51)
[2016-12-03] MEDS: ASPIRIN 81 MG EC TABLET PO SCH (08:51)
[2016-12-03] MEDS: GuaiFENesin SR 600 MG ER TABLET PO SCH ×2 (08:51→21:55)
[2016-12-03] MEDS: METOPROLOL SUCCINATE 25 MG ER TABLET PO SCH ×2 (08:52→21:55)
[2016-12-03] MEDS: SPIRONOLACTONE 25 MG TABLET PO SCH (08:53)
[2016-12-03 11:32] VITALS: BP 90/46
[2016-12-03] MEDS: IPRATROPIUM BROMIDE 0.5 MG/2.5 ML NEB SOLUTION NEB PRN ×2 (14:00→20:19)
[2016-12-03 15:31] VITALS: BP 105/49
[2016-12-03 19:16] VITALS: BP 110/52
[2016-12-03] MEDS: MIRTAZAPINE 15 MG TABLET PO SCH (21:55)
[2016-12-03] MEDS: ATORVASTATIN CALCIUM 20 MG TABLET PO SCH (21:55)
[2016-12-03] MEDS: DONEPEZIL HCL 10 MG TABLET PO SCH (21:55)
[2016-12-03] MEDS: CefoTEtan DISOD 1 GM/DEXTROSE 50 ML IV SCH (21:56)
[2016-12-03] MEDS: CALCIUM OYSTER SHELL 250 MG-VIT D3 125 UNITS TABLET PO SCH (21:56)
[2016-12-03 23:41] VITALS: BP 94/45
[2016-12-04] MEDS: BACLOFEN 10 MG TABLET PO PRN (00:09)
[2016-12-04] MEDS: ZOLPIDEM TARTRATE 5 MG TABLET PO PRN (00:09)
[2016-12-04 04:40] VITALS: BP 92/49
[2016-12-04] MEDS: PANTOPRAZOLE SODIUM 40 MG DR TABLET PO SCH (06:40)
[2016-12-04] MEDS: LEVOTHYROXINE SODIUM 88 MCG TABLET PO SCH (06:40)
[2016-12-04 07:08] VITALS: BP 113/75
[2016-12-04] MEDS: ALBUTEROL SULFATE 2.5 MG/0.5 ML NEB SOLUTION NEB SCH ×4 (08:02→21:14)
[2016-12-04] MEDS: IPRATROPIUM BROMIDE 0.5 MG/2.5 ML NEB SOLUTION NEB SCH ×3 (08:02→23:29)
[2016-12-04] MEDS: SPIRONOLACTONE 25 MG TABLET PO SCH (08:37)
[2016-12-04] MEDS: MULTIVITAMINS WITH MINERALS, THERAPEUTIC TABLET PO SCH (08:37)
[2016-12-04] MEDS: ASPIRIN 81 MG EC TABLET PO SCH (08:38)
[2016-12-04] MEDS: DRONABINOL 2.5 MG CAPSULE PO SCH ×2 (08:38→20:57)
[2016-12-04] MEDS: GuaiFENesin SR 600 MG ER TABLET PO SCH ×2 (08:38→20:56)
[2016-12-04] MEDS: MEMANTINE HCL 10 MG TABLET PO SCH ×2 (08:39→20:56)
[2016-12-04] MEDS: HEPARIN SODIUM,PORCINE 5,000 UNITS/ML VIAL SQ SCH ×2 (08:39→20:57)
[2016-12-04] MEDS: METOPROLOL SUCCINATE 25 MG ER TABLET PO SCH ×2 (08:40→20:56)
[2016-12-04] MEDS: MetroNIDAZOLE 250 MG TABLET PO SCH ×2 (08:40→16:19)
[2016-12-04 11:18] VITALS: BP 116/63
[2016-12-04] MEDS: LOSARTAN POTASSIUM 50 MG TABLET PO SCH (11:39)
[2016-12-04] MEDS ORDERED: 0.9% SODIUM CHLORIDE 5 ML NEB SOLUTION NEB ONE ×2 (11:55→21:06)
[2016-12-04] MEDS: HYDROCODONE/ACETAMINOPHEN 5-325 MG TABLET PO PRN (12:20)
[2016-12-04 15:32] VITALS: BP 106/65
[2016-12-04] MEDS: VANCOMYCIN HCL 125 MG/2.5 ML SOLUTION ORAL.SYG PO SCH (18:29)
[2016-12-04 19:32] VITALS: BP 122/51
[2016-12-04] MEDS: CALCIUM OYSTER SHELL 250 MG-VIT D3 125 UNITS TABLET PO SCH (20:56)
[2016-12-04] MEDS: ATORVASTATIN CALCIUM 20 MG TABLET PO SCH (20:56)
[2016-12-04] MEDS: CefoTEtan DISOD 1 GM/DEXTROSE 50 ML IV SCH (20:57)
[2016-12-04] MEDS: DONEPEZIL HCL 10 MG TABLET PO SCH (20:57)
[2016-12-04] MEDS: IPRATROPIUM BROMIDE 0.5 MG/2.5 ML NEB SOLUTION NEB PRN (21:14)
[2016-12-04 23:12] VITALS: BP 96/53
[2016-12-05] MEDS: VANCOMYCIN HCL 125 MG/2.5 ML SOLUTION ORAL.SYG PO SCH ×4 (00:53→18:14)
[2016-12-05 04:21] VITALS: BP 111/61
[2016-12-05] MEDS: LEVOTHYROXINE SODIUM 88 MCG TABLET PO SCH (06:04)
[2016-12-05] MEDS: PANTOPRAZOLE SODIUM 40 MG DR TABLET PO SCH (06:30)
[2016-12-05] MEDS: IPRATROPIUM BROMIDE 0.5 MG/2.5 ML NEB SOLUTION NEB SCH ×3 (08:01→23:41)
[2016-12-05] MEDS: ALBUTEROL SULFATE 2.5 MG/0.5 ML NEB SOLUTION NEB SCH ×4 (08:01→23:41)
[2016-12-05 08:30] VITALS: BP 141/84
[2016-12-05] MEDS: BACLOFEN 10 MG TABLET PO PRN (09:11)
[2016-12-05] MEDS: MEMANTINE HCL 10 MG TABLET PO SCH ×2 (09:11→21:29)
[2016-12-05] MEDS: GuaiFENesin SR 600 MG ER TABLET PO SCH ×2 (09:11→21:29)
[2016-12-05] MEDS: DRONABINOL 2.5 MG CAPSULE PO SCH ×2 (09:12→21:29)
[2016-12-05] MEDS: METOPROLOL SUCCINATE 25 MG ER TABLET PO SCH ×2 (09:12→21:28)
[2016-12-05] MEDS: SPIRONOLACTONE 25 MG TABLET PO SCH (09:12)
[2016-12-05] MEDS: HEPARIN SODIUM,PORCINE 5,000 UNITS/ML VIAL SQ SCH ×2 (09:13→21:29)
[2016-12-05] MEDS: CALCIUM OYSTER SHELL 250 MG-VIT D3 125 UNITS TABLET PO SCH (09:15)
[2016-12-05] MEDS: ASPIRIN 81 MG EC TABLET PO SCH (09:16)
[2016-12-05 11:27] VITALS: BP 141/84
[2016-12-05] MEDS: MULTIVITAMINS WITH MINERALS, THERAPEUTIC TABLET PO SCH (12:12)
[2016-12-05] MEDS: LOSARTAN POTASSIUM 50 MG TABLET PO SCH (12:12)
[2016-12-05 16:00] VITALS: BP 108/59
[2016-12-05 19:49] VITALS: BP 129/80
[2016-12-05] MEDS: CefoTEtan DISOD 1 GM/DEXTROSE 50 ML IV SCH (21:27)
[2016-12-05] MEDS: DONEPEZIL HCL 10 MG TABLET PO SCH (21:29)
[2016-12-05] MEDS: ATORVASTATIN CALCIUM 20 MG TABLET PO SCH (21:29)
[2016-12-05 23:14] VITALS: BP 150/83
[2016-12-06] MEDS: VANCOMYCIN HCL 125 MG/2.5 ML SOLUTION ORAL.SYG PO SCH ×4 (00:29→18:12)
[2016-12-06 05:31] VITALS: BP 141/80
[2016-12-06] MEDS: LEVOTHYROXINE SODIUM 88 MCG TABLET PO SCH (05:49)
[2016-12-06] MEDS: PANTOPRAZOLE SODIUM 40 MG DR TABLET PO SCH (05:49)
[2016-12-06 07:02] VITALS: BP 166/61
[2016-12-06] MEDS: HEPARIN SODIUM,PORCINE 5,000 UNITS/ML VIAL SQ SCH ×2 (08:15→20:41)
[2016-12-06] MEDS: BACLOFEN 10 MG TABLET PO PRN (08:50)
[2016-12-06] MEDS: DRONABINOL 2.5 MG CAPSULE PO SCH ×2 (08:51→20:40)
[2016-12-06] MEDS: LOSARTAN POTASSIUM 50 MG TABLET PO SCH (08:51)
[2016-12-06] MEDS: ASPIRIN 81 MG EC TABLET PO SCH (08:51)
[2016-12-06] MEDS: GuaiFENesin SR 600 MG ER TABLET PO SCH ×2 (08:51→20:39)
[2016-12-06] MEDS: SPIRONOLACTONE 25 MG TABLET PO SCH (08:51)
[2016-12-06] MEDS: MEMANTINE HCL 10 MG TABLET PO SCH ×2 (08:52→20:40)
[2016-12-06] MEDS: METOPROLOL SUCCINATE 25 MG ER TABLET PO SCH ×2 (08:52→20:40)
[2016-12-06] MEDS: MULTIVITAMINS WITH MINERALS, THERAPEUTIC TABLET PO SCH (08:54)
[2016-12-06] MEDS: ALBUTEROL SULFATE 2.5 MG/0.5 ML NEB SOLUTION NEB SCH ×4 (10:24→21:21)
[2016-12-06] MEDS: IPRATROPIUM BROMIDE 0.5 MG/2.5 ML NEB SOLUTION NEB SCH ×2 (10:24→16:13)
[2016-12-06 11:24] VITALS: BP 150/72
[2016-12-06] MEDS ORDERED: 0.9% SODIUM CHLORIDE 5 ML NEB SOLUTION NEB ONE ×2 (13:27→21:12)
[2016-12-06 15:37] VITALS: BP 130/92
[2016-12-06 19:39] VITALS: BP 145/78
[2016-12-06] MEDS: DONEPEZIL HCL 10 MG TABLET PO SCH (20:39)
[2016-12-06] MEDS: CefoTEtan DISOD 1 GM/DEXTROSE 50 ML IV SCH (20:40)
[2016-12-06] MEDS: ATORVASTATIN CALCIUM 20 MG TABLET PO SCH (20:40)
[2016-12-06] MEDS: CALCIUM OYSTER SHELL 250 MG-VIT D3 125 UNITS TABLET PO SCH (20:40)
[2016-12-07] VITALS (8 sets, daily range): BP systolic 101–147; BP diastolic 46–94
[2016-12-07] MEDS: IPRATROPIUM BROMIDE 0.5 MG/2.5 ML NEB SOLUTION NEB SCH ×4 (00:08→23:27)
[2016-12-07] MEDS: VANCOMYCIN HCL 125 MG/2.5 ML SOLUTION ORAL.SYG PO SCH ×5 (00:19→23:44)
[2016-12-07] MEDS: HYDROCODONE/ACETAMINOPHEN 5-325 MG TABLET PO PRN ×2 (04:04→22:24)
[2016-12-07] MEDS: LEVOTHYROXINE SODIUM 88 MCG TABLET PO SCH (05:40)
[2016-12-07] MEDS: PANTOPRAZOLE SODIUM 40 MG DR TABLET PO SCH (05:40)
[2016-12-07] MEDS: MULTIVITAMINS WITH MINERALS, THERAPEUTIC TABLET PO SCH (08:24)
[2016-12-07] MEDS: SPIRONOLACTONE 25 MG TABLET PO SCH (08:24)
[2016-12-07] MEDS: ASPIRIN 81 MG EC TABLET PO SCH (08:24)
[2016-12-07] MEDS: GuaiFENesin SR 600 MG ER TABLET PO SCH ×2 (08:24→22:25)
[2016-12-07] MEDS: DRONABINOL 2.5 MG CAPSULE PO SCH ×2 (08:24→22:25)
[2016-12-07] MEDS: LOSARTAN POTASSIUM 50 MG TABLET PO SCH (08:24)
[2016-12-07] MEDS: HEPARIN SODIUM,PORCINE 5,000 UNITS/ML VIAL SQ SCH ×2 (08:24→22:24)
[2016-12-07] MEDS: MEMANTINE HCL 10 MG TABLET PO SCH ×2 (08:25→22:24)
[2016-12-07] MEDS: METOPROLOL SUCCINATE 25 MG ER TABLET PO SCH ×2 (08:25→22:24)
[2016-12-07] MEDS: ALBUTEROL SULFATE 2.5 MG/0.5 ML NEB SOLUTION NEB SCH ×4 (08:27→20:44)
[2016-12-07] MEDS ORDERED: 0.9% SODIUM CHLORIDE 5 ML NEB SOLUTION NEB ONE (20:44)
[2016-12-07] MEDS: CALCIUM OYSTER SHELL 250 MG-VIT D3 125 UNITS TABLET PO SCH (22:24)
[2016-12-07] MEDS: ATORVASTATIN CALCIUM 20 MG TABLET PO SCH (22:25)
[2016-12-07] MEDS: DONEPEZIL HCL 10 MG TABLET PO SCH (22:25)
[2016-12-07] MEDS: CefoTEtan DISOD 1 GM/DEXTROSE 50 ML IV SCH (22:26)
[2016-12-08 04:42] VITALS: BP 139/78
[2016-12-08] MEDS: VANCOMYCIN HCL 125 MG/2.5 ML SOLUTION ORAL.SYG PO SCH ×3 (07:04→19:06)
[2016-12-08] MEDS: LEVOTHYROXINE SODIUM 88 MCG TABLET PO SCH (07:05)
[2016-12-08] MEDS: PANTOPRAZOLE SODIUM 40 MG DR TABLET PO SCH (07:05)
[2016-12-08 07:20] VITALS: BP 146/84
[2016-12-08] MEDS: IPRATROPIUM BROMIDE 0.5 MG/2.5 ML NEB SOLUTION NEB SCH ×3 (08:04→23:34)
[2016-12-08] MEDS: ALBUTEROL SULFATE 2.5 MG/0.5 ML NEB SOLUTION NEB SCH ×4 (08:04→23:34)
[2016-12-08] MEDS: MULTIVITAMINS WITH MINERALS, THERAPEUTIC TABLET PO SCH (08:36)
[2016-12-08] MEDS: DRONABINOL 2.5 MG CAPSULE PO SCH ×2 (08:37→22:44)
[2016-12-08] MEDS: GuaiFENesin SR 600 MG ER TABLET PO SCH ×2 (08:37→21:09)
[2016-12-08] MEDS: MEMANTINE HCL 10 MG TABLET PO SCH ×2 (08:37→21:09)
[2016-12-08] MEDS: SPIRONOLACTONE 25 MG TABLET PO SCH (08:37)
[2016-12-08] MEDS: ASPIRIN 81 MG EC TABLET PO SCH (08:37)
[2016-12-08] MEDS: METOPROLOL SUCCINATE 25 MG ER TABLET PO SCH ×2 (08:37→21:10)
[2016-12-08] MEDS: LOSARTAN POTASSIUM 50 MG TABLET PO SCH (08:38)
[2016-12-08] MEDS: HEPARIN SODIUM,PORCINE 5,000 UNITS/ML VIAL SQ SCH ×2 (08:38→21:09)
[2016-12-08] MEDS: MetroNIDAZOLE 250 MG TABLET PO SCH ×3 (09:10→21:09)
[2016-12-08 09:36] LABS: ANION GAP 11 mmol/L (8-16); CALCIUM, TOTAL 8.4 mg/dL (8.8-10.5); CARBON DIOXIDE 20 mmol/L (22-29); CHLORIDE 108 mmol/L (98-107); CREATININE 0.81 mg/dL (0.60-1.30); GLOMERULAR FILTR. RATE CALC > 60 mL/min (>60); POTASSIUM 4.8 mmol/L (3.5-5.1); SODIUM SERUM 139 mmol/L (136-145); UREA NITROGEN, BLOOD 19 mg/dL (7-18)
[2016-12-08 09:41] LABS: ALANINE AMINOTRANSFERASE 21 U/L (12-78); ALBUMIN 1.8 g/dL (3.4-5.0); ASPARTATE AMINOTRANSFERASE 39 U/L (15-37); BILIRUBIN,TOTAL 0.3 mg/dL (0.1-1.0); TOTAL PROTEIN, SERUM 8.2 g/dL (6.4-8.2)
[2016-12-08 09:48] LABS: BASOPHILS % (AUTO) 0.5 % (0.0-2.0); EOSINOPHILS % (AUTO) 2.5 % (1.0-6.0); HEMATOCRIT 33.7 % (36-46); HEMOGLOBIN 10.9 g/dL (12.0-16.0); LYMPHOCYTES # (AUTO) 1.1 K/uL (1.0-4.8); MEAN CORPUSCULAR HEMOGLOBIN 31.8 pg (26.0-34.0); MEAN CORPUSCULAR HGB CONC 32.4 G/dL (31.0-37.0); MEAN CORPUSCULAR VOLUME 98 fL (80-100); MONOCYTES # (AUTO) 0.2 K/uL (0.1-1.0); NEUTROPHILS # (AUTO) 3.1 K/uL (1.8-7.7); PLATELET COUNT (AUTO) 241 K/uL (150-450); RED BLOOD CELL COUNT(AUTO) 3.43 MIL/uL (4.00-5.20); RED CELL DISTRIBUTION WIDTH 18.1 % (11.5-14.5); WHITE BLOOD COUNT (AUTO) 4.6 K/uL (4.5-11.0)
[2016-12-08 09:52] LABS: RBC MORPHOLOGY COMMENT ABNORMAL RBC MORPH
[2016-12-08 11:52] VITALS: BP 121/70
[2016-12-08 16:41] VITALS: BP 148/94
[2016-12-08 19:37] VITALS: BP 149/80
[2016-12-08] MEDS: DONEPEZIL HCL 10 MG TABLET PO SCH (21:09)
[2016-12-08] MEDS: CALCIUM OYSTER SHELL 250 MG-VIT D3 125 UNITS TABLET PO SCH (21:09)
[2016-12-08] MEDS: ATORVASTATIN CALCIUM 20 MG TABLET PO SCH (21:09)
[2016-12-08 23:38] VITALS: BP 121/74
[2016-12-09] MEDS: VANCOMYCIN HCL 125 MG/2.5 ML SOLUTION ORAL.SYG PO SCH ×5 (01:05→23:33)
[2016-12-09 03:46] VITALS: BP 127/77
[2016-12-09] MEDS: LEVOTHYROXINE SODIUM 88 MCG TABLET PO SCH (05:51)
[2016-12-09] MEDS: PANTOPRAZOLE SODIUM 40 MG DR TABLET PO SCH (05:52)
[2016-12-09 06:35] LABS: ALANINE AMINOTRANSFERASE 25 U/L (12-78); ALBUMIN 1.8 g/dL (3.4-5.0); ANION GAP 8 mmol/L (8-16); ASPARTATE AMINOTRANSFERASE 50 U/L (15-37); BILIRUBIN,TOTAL 0.3 mg/dL (0.1-1.0); CALCIUM, TOTAL 8.2 mg/dL (8.8-10.5); CARBON DIOXIDE 21 mmol/L (22-29); CHLORIDE 108 mmol/L (98-107); CREATININE 0.77 mg/dL (0.60-1.30); GLOMERULAR FILTR. RATE CALC > 60 mL/min (>60); POTASSIUM 4.9 mmol/L (3.5-5.1); SODIUM SERUM 137 mmol/L (136-145); TOTAL PROTEIN, SERUM 7.9 g/dL (6.4-8.2); UREA NITROGEN, BLOOD 20 mg/dL (7-18)
[2016-12-09 07:42] VITALS: BP 152/73
[2016-12-09] MEDS: METOPROLOL SUCCINATE 25 MG ER TABLET PO SCH ×2 (08:12→20:22)
[2016-12-09] MEDS: MetroNIDAZOLE 250 MG TABLET PO SCH (08:12)
[2016-12-09] MEDS: MULTIVITAMINS WITH MINERALS, THERAPEUTIC TABLET PO SCH (08:12)
[2016-12-09] MEDS: SPIRONOLACTONE 25 MG TABLET PO SCH (08:12)
[2016-12-09] MEDS: MEMANTINE HCL 10 MG TABLET PO SCH ×2 (08:12→20:21)
[2016-12-09] MEDS: DRONABINOL 2.5 MG CAPSULE PO SCH ×4 (08:12→20:21)
[2016-12-09] MEDS: HEPARIN SODIUM,PORCINE 5,000 UNITS/ML VIAL SQ SCH ×2 (08:12→20:21)
[2016-12-09] MEDS: GuaiFENesin SR 600 MG ER TABLET PO SCH ×2 (08:12→20:21)
[2016-12-09] MEDS: LOSARTAN POTASSIUM 50 MG TABLET PO SCH (08:13)
[2016-12-09] MEDS: ASPIRIN 81 MG EC TABLET PO SCH (08:13)
[2016-12-09] MEDS: IPRATROPIUM BROMIDE 0.5 MG/2.5 ML NEB SOLUTION NEB SCH ×3 (10:00→23:48)
[2016-12-09] MEDS: ALBUTEROL SULFATE 2.5 MG/0.5 ML NEB SOLUTION NEB SCH ×4 (10:00→20:32)
[2016-12-09 12:20] VITALS: BP 102/68
[2016-12-09] MEDS ORDERED: 0.9% SODIUM CHLORIDE 5 ML NEB SOLUTION NEB ONE ×2 (14:06→20:29)
[2016-12-09 15:31] VITALS: BP 129/79
[2016-12-09] MEDS: ATORVASTATIN CALCIUM 20 MG TABLET PO SCH (20:21)
[2016-12-09] MEDS: ZOLPIDEM TARTRATE 5 MG TABLET PO PRN (20:21)
[2016-12-09] MEDS: CALCIUM OYSTER SHELL 250 MG-VIT D3 125 UNITS TABLET PO SCH (20:22)
[2016-12-09] MEDS: DONEPEZIL HCL 10 MG TABLET PO SCH (20:22)
[2016-12-09 20:36] VITALS: BP 113/73
[2016-12-09 23:58] VITALS: BP 153/83
[2016-12-10 05:06] VITALS: BP 156/64
[2016-12-10] MEDS: VANCOMYCIN HCL 125 MG/2.5 ML SOLUTION ORAL.SYG PO SCH ×4 (05:34→23:21)
[2016-12-10] MEDS: LEVOTHYROXINE SODIUM 88 MCG TABLET PO SCH (05:35)
[2016-12-10] MEDS: PANTOPRAZOLE SODIUM 40 MG DR TABLET PO SCH (06:43)
[2016-12-10 07:02] VITALS: BP 145/73
[2016-12-10] MEDS: MULTIVITAMINS WITH MINERALS, THERAPEUTIC TABLET PO SCH (08:28)
[2016-12-10] MEDS: DRONABINOL 2.5 MG CAPSULE PO SCH ×3 (08:29→20:08)
[2016-12-10] MEDS: GuaiFENesin SR 600 MG ER TABLET PO SCH ×2 (08:29→20:08)
[2016-12-10] MEDS: HEPARIN SODIUM,PORCINE 5,000 UNITS/ML VIAL SQ SCH ×2 (08:29→20:08)
[2016-12-10] MEDS: METOPROLOL SUCCINATE 25 MG ER TABLET PO SCH ×2 (08:29→20:08)
[2016-12-10] MEDS: ASPIRIN 81 MG EC TABLET PO SCH (08:29)
[2016-12-10] MEDS: SPIRONOLACTONE 25 MG TABLET PO SCH (08:29)
[2016-12-10] MEDS: LOSARTAN POTASSIUM 50 MG TABLET PO SCH (08:29)
[2016-12-10] MEDS: MEMANTINE HCL 10 MG TABLET PO SCH ×2 (08:32→20:08)
[2016-12-10] MEDS: IPRATROPIUM BROMIDE 0.5 MG/2.5 ML NEB SOLUTION NEB SCH ×3 (09:35→23:57)
[2016-12-10] MEDS: ALBUTEROL SULFATE 2.5 MG/0.5 ML NEB SOLUTION NEB SCH ×4 (09:35→20:29)
[2016-12-10 11:58] VITALS: BP 139/76
[2016-12-10] MEDS ORDERED: 0.9% SODIUM CHLORIDE 5 ML NEB SOLUTION NEB ONE ×2 (13:48→20:23)
[2016-12-10 15:11] VITALS: BP 136/75
[2016-12-10] MEDS: DONEPEZIL HCL 10 MG TABLET PO SCH (20:07)
[2016-12-10] MEDS: CALCIUM OYSTER SHELL 250 MG-VIT D3 125 UNITS TABLET PO SCH (20:08)
[2016-12-10] MEDS: ZOLPIDEM TARTRATE 5 MG TABLET PO PRN (20:08)
[2016-12-10] MEDS: ATORVASTATIN CALCIUM 20 MG TABLET PO SCH (20:08)
[2016-12-10 20:26] VITALS: BP 135/74
[2016-12-11] VITALS (7 sets, daily range): BP systolic 103–142; BP diastolic 34–79
[2016-12-11] MEDS: LEVOTHYROXINE SODIUM 88 MCG TABLET PO SCH (05:55)
[2016-12-11] MEDS: PANTOPRAZOLE SODIUM 40 MG DR TABLET PO SCH (05:55)
[2016-12-11] MEDS: VANCOMYCIN HCL 125 MG/2.5 ML SOLUTION ORAL.SYG PO SCH ×3 (05:56→18:38)
[2016-12-11] MEDS: IPRATROPIUM BROMIDE 0.5 MG/2.5 ML NEB SOLUTION NEB SCH ×2 (09:08→16:00)
[2016-12-11] MEDS: ALBUTEROL SULFATE 2.5 MG/0.5 ML NEB SOLUTION NEB SCH ×4 (09:09→20:34)
[2016-12-11] MEDS: SPIRONOLACTONE 25 MG TABLET PO SCH (09:10)
[2016-12-11] MEDS: LOSARTAN POTASSIUM 50 MG TABLET PO SCH (09:10)
[2016-12-11] MEDS: ASPIRIN 81 MG EC TABLET PO SCH (09:10)
[2016-12-11] MEDS: METOPROLOL SUCCINATE 25 MG ER TABLET PO SCH ×2 (09:11→20:22)
[2016-12-11] MEDS: HEPARIN SODIUM,PORCINE 5,000 UNITS/ML VIAL SQ SCH ×2 (09:11→20:21)
[2016-12-11] MEDS: DRONABINOL 2.5 MG CAPSULE PO SCH ×2 (09:11→20:22)
[2016-12-11] MEDS: MEMANTINE HCL 10 MG TABLET PO SCH ×2 (09:11→20:22)
[2016-12-11] MEDS: GuaiFENesin SR 600 MG ER TABLET PO SCH ×2 (09:12→20:21)
[2016-12-11] MEDS: MULTIVITAMINS WITH MINERALS, THERAPEUTIC TABLET PO SCH (12:13)
[2016-12-11] MEDS ORDERED: 0.9% SODIUM CHLORIDE 5 ML NEB SOLUTION NEB ONE ×2 (13:13→19:56)
[2016-12-11] MEDS: DONEPEZIL HCL 10 MG TABLET PO SCH (20:22)
[2016-12-11] MEDS: ATORVASTATIN CALCIUM 20 MG TABLET PO SCH (20:22)
[2016-12-11] MEDS: CALCIUM OYSTER SHELL 250 MG-VIT D3 125 UNITS TABLET PO SCH (20:22)
[2016-12-12] MEDS: VANCOMYCIN HCL 125 MG/2.5 ML SOLUTION ORAL.SYG PO SCH ×5 (00:01→23:47)
[2016-12-12] MEDS: IPRATROPIUM BROMIDE 0.5 MG/2.5 ML NEB SOLUTION NEB SCH ×3 (00:53→16:57)
[2016-12-12 03:56] VITALS: BP 131/79
[2016-12-12] MEDS: PANTOPRAZOLE SODIUM 40 MG DR TABLET PO SCH (06:38)
[2016-12-12] MEDS: LEVOTHYROXINE SODIUM 88 MCG TABLET PO SCH (06:39)
[2016-12-12 07:39] VITALS: BP 133/64
[2016-12-12 07:54] LABS: BASOPHILS # (AUTO) 0.16 K/uL (0.00-0.20); BASOPHILS % (AUTO) 1.4 % (0.0-2.0); EOSINOPHILS # (AUTO) 0.21 K/uL (0.00-0.70); EOSINOPHILS % (AUTO) 1.88 % (1.0-6.0); HEMATOCRIT 35.6 % (36-46); HEMOGLOBIN 11.9 g/dL (12.0-16.0); LYMPHOCYTES # (AUTO) 3.2 K/uL (1.0-4.8); LYMPHOCYTES % (AUTO) 28.8 % (22.0-44.0); MEAN CORPUSCULAR HEMOGLOBIN 31.3 pg (26.0-34.0); MEAN CORPUSCULAR HGB CONC 33.4 G/dL (31.0-37.0); MEAN CORPUSCULAR VOLUME 94 fL (80-100); MONOCYTES # (AUTO) 0.4 K/uL (0.1-1.0); NEUTROPHILS % (AUTO) 63.9 % (40.0-70.0); PLATELET COUNT (AUTO) 238 K/uL (150-450); RED BLOOD CELL COUNT(AUTO) 3.81 MIL/uL (4.00-5.20); RED CELL DISTRIBUTION WIDTH 15.4 % (11.5-14.5)
[2016-12-12] MEDS: ALBUTEROL SULFATE 2.5 MG/0.5 ML NEB SOLUTION NEB SCH ×3 (08:07→16:57)
[2016-12-12 08:12] LABS: ANION GAP 12 mmol/L (8-16); CALCIUM, TOTAL 8.9 mg/dL (8.8-10.5); CARBON DIOXIDE 18 mmol/L (22-29); CHLORIDE 108 mmol/L (98-107); CREATININE 0.73 mg/dL (0.60-1.30); GLOMERULAR FILTR. RATE CALC > 60 mL/min (>60); POTASSIUM 4.8 mmol/L (3.5-5.1); SODIUM SERUM 138 mmol/L (136-145); UREA NITROGEN, BLOOD 21 mg/dL (7-18)
[2016-12-12] MEDS: DRONABINOL 2.5 MG CAPSULE PO SCH ×2 (08:21→20:03)
[2016-12-12] MEDS: HEPARIN SODIUM,PORCINE 5,000 UNITS/ML VIAL SQ SCH ×2 (08:21→20:04)
[2016-12-12] MEDS: SPIRONOLACTONE 25 MG TABLET PO SCH (08:21)
[2016-12-12] MEDS: MEMANTINE HCL 10 MG TABLET PO SCH ×2 (08:21→20:03)
[2016-12-12] MEDS: ASPIRIN 81 MG EC TABLET PO SCH (08:21)
[2016-12-12] MEDS: GuaiFENesin SR 600 MG ER TABLET PO SCH ×2 (08:21→20:03)
[2016-12-12] MEDS: METOPROLOL SUCCINATE 25 MG ER TABLET PO SCH ×2 (08:21→20:04)
[2016-12-12] MEDS: LOSARTAN POTASSIUM 50 MG TABLET PO SCH (08:21)
[2016-12-12] MEDS: MULTIVITAMINS WITH MINERALS, THERAPEUTIC TABLET PO SCH (08:22)
[2016-12-12 11:57] VITALS: BP 142/56
[2016-12-12] MEDS ORDERED: 0.9% SODIUM CHLORIDE 5 ML NEB SOLUTION NEB ONE (13:56)
[2016-12-12 15:43] VITALS: BP 132/80
[2016-12-12 20:00] VITALS: BP 126/68
[2016-12-12] MEDS: ATORVASTATIN CALCIUM 20 MG TABLET PO SCH (20:03)
[2016-12-12] MEDS: DONEPEZIL HCL 10 MG TABLET PO SCH (20:03)
[2016-12-12] MEDS: CALCIUM OYSTER SHELL 250 MG-VIT D3 125 UNITS TABLET PO SCH (20:04)
[2016-12-12 23:51] VITALS: BP 107/58
[2016-12-13] MEDS: IPRATROPIUM BROMIDE 0.5 MG/2.5 ML NEB SOLUTION NEB SCH ×4 (00:09→23:56)
[2016-12-13] MEDS: ALBUTEROL SULFATE 2.5 MG/0.5 ML NEB SOLUTION NEB SCH ×5 (00:09→21:36)
[2016-12-13] MEDS: HYDROCODONE/ACETAMINOPHEN 5-325 MG TABLET PO PRN ×3 (01:24→23:35)
[2016-12-13 04:00] VITALS: BP 137/72
[2016-12-13] MEDS: ACETAMINOPHEN 325 MG TABLET PO PRN (04:29)
[2016-12-13] MEDS: VANCOMYCIN HCL 125 MG/2.5 ML SOLUTION ORAL.SYG PO SCH ×4 (05:37→23:35)
[2016-12-13] MEDS: LEVOTHYROXINE SODIUM 88 MCG TABLET PO SCH (05:38)
[2016-12-13] MEDS: PANTOPRAZOLE SODIUM 40 MG DR TABLET PO SCH (05:38)
[2016-12-13 08:07] VITALS: BP 120/82
[2016-12-13] MEDS: BACLOFEN 10 MG TABLET PO PRN (08:16)
[2016-12-13] MEDS: MULTIVITAMINS WITH MINERALS, THERAPEUTIC TABLET PO SCH (08:16)
[2016-12-13] MEDS: ASPIRIN 81 MG EC TABLET PO SCH (08:16)
[2016-12-13] MEDS: GuaiFENesin SR 600 MG ER TABLET PO SCH ×2 (08:16→20:17)
[2016-12-13] MEDS: SPIRONOLACTONE 25 MG TABLET PO SCH (08:16)
[2016-12-13] MEDS: METOPROLOL SUCCINATE 25 MG ER TABLET PO SCH ×2 (08:17→20:17)
[2016-12-13] MEDS: DRONABINOL 2.5 MG CAPSULE PO SCH ×2 (08:17→20:18)
[2016-12-13] MEDS: MEMANTINE HCL 10 MG TABLET PO SCH ×2 (08:17→20:17)
[2016-12-13] MEDS: HEPARIN SODIUM,PORCINE 5,000 UNITS/ML VIAL SQ SCH ×2 (08:18→20:18)
[2016-12-13] MEDS: LOSARTAN POTASSIUM 50 MG TABLET PO SCH (09:00)
[2016-12-13 11:45] VITALS: BP 100/56
[2016-12-13] MEDS ORDERED: 0.9% SODIUM CHLORIDE 5 ML NEB SOLUTION NEB ONE ×2 (13:40→20:37)
[2016-12-13 15:39] VITALS: BP 127/51
[2016-12-13 19:42] VITALS: BP 124/55
[2016-12-13] MEDS: CALCIUM OYSTER SHELL 250 MG-VIT D3 125 UNITS TABLET PO SCH (20:17)
[2016-12-13] MEDS: DONEPEZIL HCL 10 MG TABLET PO SCH (20:18)
[2016-12-13] MEDS: ATORVASTATIN CALCIUM 20 MG TABLET PO SCH (20:18)
[2016-12-13] MEDS: ZOLPIDEM TARTRATE 5 MG TABLET PO PRN (23:35)
[2016-12-14 00:12] VITALS: BP 101/56
[2016-12-14 05:03] VITALS: BP 115/59
[2016-12-14] MEDS: LEVOTHYROXINE SODIUM 88 MCG TABLET PO SCH (05:44)
[2016-12-14] MEDS: VANCOMYCIN HCL 125 MG/2.5 ML SOLUTION ORAL.SYG PO SCH ×2 (05:44→11:51)
[2016-12-14] MEDS: PANTOPRAZOLE SODIUM 40 MG DR TABLET PO SCH (05:45)
[2016-12-14 07:55] VITALS: BP 130/65
[2016-12-14] MEDS: IPRATROPIUM BROMIDE 0.5 MG/2.5 ML NEB SOLUTION NEB SCH ×2 (08:41→16:47)
[2016-12-14] MEDS: ALBUTEROL SULFATE 2.5 MG/0.5 ML NEB SOLUTION NEB SCH ×4 (08:41→20:01)
[2016-12-14] MEDS: METOPROLOL SUCCINATE 25 MG ER TABLET PO SCH ×2 (09:16→20:57)
[2016-12-14] MEDS: GuaiFENesin SR 600 MG ER TABLET PO SCH ×2 (09:17→20:57)
[2016-12-14] MEDS: ASPIRIN 81 MG EC TABLET PO SCH (09:17)
[2016-12-14] MEDS: DRONABINOL 2.5 MG CAPSULE PO SCH ×2 (09:17→20:57)
[2016-12-14] MEDS: MEMANTINE HCL 10 MG TABLET PO SCH ×2 (09:17→20:57)
[2016-12-14] MEDS: LOSARTAN POTASSIUM 50 MG TABLET PO SCH (09:17)
[2016-12-14] MEDS: HEPARIN SODIUM,PORCINE 5,000 UNITS/ML VIAL SQ SCH ×2 (09:18→20:57)
[2016-12-14] MEDS: MULTIVITAMINS WITH MINERALS, THERAPEUTIC TABLET PO SCH (09:19)
[2016-12-14] MEDS: SPIRONOLACTONE 25 MG TABLET PO SCH (09:39)
[2016-12-14 11:20] VITALS: BP 105/69
[2016-12-14] MEDS ORDERED: 0.9% SODIUM CHLORIDE 5 ML NEB SOLUTION NEB ONE ×2 (13:15→19:59)
[2016-12-14 19:39] VITALS: BP 113/69
[2016-12-14] MEDS: ATORVASTATIN CALCIUM 20 MG TABLET PO SCH (20:57)
[2016-12-14] MEDS: DONEPEZIL HCL 10 MG TABLET PO SCH (20:57)
[2016-12-14 23:24] VITALS: BP 117/63
[2016-12-15] MEDS: CALCIUM OYSTER SHELL 250 MG-VIT D3 125 UNITS TABLET PO SCH ×2 (00:13→21:22)
[2016-12-15] MEDS: IPRATROPIUM BROMIDE 0.5 MG/2.5 ML NEB SOLUTION NEB SCH ×4 (01:23→23:47)
[2016-12-15 04:30] VITALS: BP 123/64
[2016-12-15] MEDS: PANTOPRAZOLE SODIUM 40 MG DR TABLET PO SCH (05:52)
[2016-12-15] MEDS: LEVOTHYROXINE SODIUM 88 MCG TABLET PO SCH (05:52)
[2016-12-15 08:22] VITALS: BP 135/65
[2016-12-15] MEDS: ALBUTEROL SULFATE 2.5 MG/0.5 ML NEB SOLUTION NEB SCH ×4 (08:40→23:47)
[2016-12-15] MEDS: MULTIVITAMINS WITH MINERALS, THERAPEUTIC TABLET PO SCH (08:54)
[2016-12-15] MEDS: MEMANTINE HCL 10 MG TABLET PO SCH ×2 (08:54→21:23)
[2016-12-15] MEDS: SPIRONOLACTONE 25 MG TABLET PO SCH (08:54)
[2016-12-15] MEDS: DRONABINOL 2.5 MG CAPSULE PO SCH ×2 (08:54→21:22)
[2016-12-15] MEDS: METOPROLOL SUCCINATE 25 MG ER TABLET PO SCH ×2 (08:54→21:23)
[2016-12-15] MEDS: LOSARTAN POTASSIUM 50 MG TABLET PO SCH (08:54)
[2016-12-15] MEDS: GuaiFENesin SR 600 MG ER TABLET PO SCH ×2 (08:54→21:22)
[2016-12-15] MEDS: ASPIRIN 81 MG EC TABLET PO SCH (08:55)
[2016-12-15] MEDS: HEPARIN SODIUM,PORCINE 5,000 UNITS/ML VIAL SQ SCH ×2 (08:55→21:22)
[2016-12-15 12:38] VITALS: BP 103/72
[2016-12-15] MEDS ORDERED: 0.9% SODIUM CHLORIDE 5 ML NEB SOLUTION NEB ONE (14:32)
[2016-12-15 16:31] VITALS: BP 136/72
[2016-12-15 19:48] VITALS: BP 138/86
[2016-12-15] MEDS: ATORVASTATIN CALCIUM 20 MG TABLET PO SCH (21:22)
[2016-12-15] MEDS: DONEPEZIL HCL 10 MG TABLET PO SCH (21:22)
[2016-12-15 23:22] VITALS: BP 109/53
[2016-12-16 05:09] VITALS: BP 128/67
[2016-12-16] MEDS: PANTOPRAZOLE SODIUM 40 MG DR TABLET PO SCH (06:10)
[2016-12-16] MEDS: LEVOTHYROXINE SODIUM 88 MCG TABLET PO SCH (06:10)
[2016-12-16 08:00] VITALS: BP 148/94
[2016-12-16] MEDS: LOSARTAN POTASSIUM 50 MG TABLET PO SCH (09:00)
[2016-12-16] MEDS: MULTIVITAMINS WITH MINERALS, THERAPEUTIC TABLET PO SCH (09:00)
[2016-12-16] MEDS: GuaiFENesin SR 600 MG ER TABLET PO SCH (09:00)
[2016-12-16] MEDS: HEPARIN SODIUM,PORCINE 5,000 UNITS/ML VIAL SQ SCH (09:00)
[2016-12-16] MEDS: DRONABINOL 2.5 MG CAPSULE PO SCH (09:00)
[2016-12-16] MEDS: SPIRONOLACTONE 25 MG TABLET PO SCH (09:00)
[2016-12-16] MEDS: METOPROLOL SUCCINATE 25 MG ER TABLET PO SCH (09:01)
[2016-12-16] MEDS: ASPIRIN 81 MG EC TABLET PO SCH (09:07)
[2016-12-16] MEDS: MEMANTINE HCL 10 MG TABLET PO SCH (09:09)
[2016-12-16] MEDS: IPRATROPIUM BROMIDE 0.5 MG/2.5 ML NEB SOLUTION NEB SCH ×2 (09:56→16:09)
[2016-12-16] MEDS: ALBUTEROL SULFATE 2.5 MG/0.5 ML NEB SOLUTION NEB SCH ×3 (09:56→16:09)
[2016-12-16 11:48] VITALS: BP 100/59
[2016-12-16] MEDS ORDERED: 0.9% SODIUM CHLORIDE 5 ML NEB SOLUTION NEB ONE (12:37)
[2016-12-16 16:41] VITALS: BP 95/48
== END 2016-12-16 19:52 | DRG 871 ==
LOC: EMS 20:29 → 5N 23:43 → 5S 11-27 21:19 → 5N 11-28 21:22 → 6N 11-30 13:36
PROVIDERS: ADMIT Internal Medicine; ATTEND Internal Medicine
DX: A41.9 Sepsis, unspecified organism (principal); J18.9 Pneumonia, unspecified organism; E43 Unspecified severe protein-calorie malnutrition; R18.8 Other ascites; J47.0 Bronchiectasis with acute lower respiratory infection; I85.00 Esophageal varices without bleeding; Z68.1 Body mass index [BMI] 19.9 or less, adult; I50.32 Chronic diastolic (congestive) heart failure; I85.10 Secondary esophageal varices without bleeding; J44.0 Chronic obstructive pulmonary disease with (acute) lower respiratory infection; N39.0 Urinary tract infection, site not specified; M48.50XA Collapsed vertebra, not elsewhere classified, site unspecified, initial encounter for fracture; J98.11 Atelectasis; F03.90 Unspecified dementia, unspecified severity, without behavioral disturbance, psychotic disturbance, mood disturbance, and anxiety; D64.9 Anemia, unspecified; K74.60 Unspecified cirrhosis of liver; R63.0 Anorexia; B19.20 Unspecified viral hepatitis C without hepatic coma; B96.20 Unspecified Escherichia coli [E. coli] as the cause of diseases classified elsewhere; G89.29 Other chronic pain; M54.9 Dorsalgia, unspecified; R62.7 Adult failure to thrive; E03.9 Hypothyroidism, unspecified; I11.0 Hypertensive heart disease with heart failure; I25.10 Atherosclerotic heart disease of native coronary artery without angina pectoris; E78.5 Hyperlipidemia, unspecified; J45.909 Unspecified asthma, uncomplicated; K21.9 Gastro-esophageal reflux disease without esophagitis; K62.3 Rectal prolapse; M81.0 Age-related osteoporosis without current pathological fracture; Z51.5 Encounter for palliative care; Z86.19 Personal history of other infectious and parasitic diseases; Z86.73 Personal history of transient ischemic attack (TIA), and cerebral infarction without residual deficits; Z79.51 Long term (current) use of inhaled steroids; Z79.899 Other long term (current) drug therapy
CPT/HCPCS: 70450; 70496; 71020; 71260; 83605; 84145; 87040; 87070; 87081; 87086; 87205; 93005; 94640; 96361; 96365; 97110; 97163; 97530; 99285; J0696; J1644; J2543; J3490; J7030; J7040; J7050; J7060; Q0167